=== PATIENT | female | born 1965 | race Caucasian/White ===

== ENCOUNTER → 2018-05-12 10:39 | Outpatient (CLI) | payer MEDICARE, SELFPAY ==
--- NOTE | 2018-05-12 | DI.NM.S_ITS ---
PROCEDURE: NM BONE SCAN WHOLE BODY RADIOPHARMACEUTICAL: 21.4 mCi Tc-99m MDP IV. INDICATIONS: RIGHT BREAST CARCINOMA, reported to have been diagnosed 2 months ago. TECHNIQUE: Delayed whole-body scintigrams were obtained approximately 3-4 hours after intravenous injection of radiotracer. Anterior and posterior views were acquired from vertex to feet. Additional left and right oblique views of the chest and upper abdomen were obtained. COMPARISON: None. FINDINGS: 2 right frontal foci of adjacent abnormal elevated bone scan agent deposition are seen, small in size, and none is seen on the left. What appears to be mild degenerative change along the cervical spine is noted but there is asymmetric increased uptake greater on the right than the left at the manubrium and sternum, and adjacent posterior and anterior ribs show a linear band of discontinuous elevated isotope deposition suspicious for representing osseous metastatic disease. Isotope uptake is asymmetrically prominent at the glenohumeral margin of the left shoulder, and asymmetric right greater than left isotope uptake is present at the acromioclavicular joints. The left shoulder appearances moderately worrisome for representing osseous metastatic disease in that area. Along the thoracic and lumbosacral spine there is mild elevated isotope uptake, in a patchy distribution, with suspected patchy metastatic disease as a likely underlying cause. At the L34 level of the lumbosacral spine there is increased isotope uptake, potentially representing metastatic disease involving the vertebral body of L3. Asymmetric increased isotope uptake is present both at the femoral and acetabular components of the right hip. A lesser degree of left hip isotope uptake is present and this is considered more likely degenerative in origin. IMPRESSION: Overall there is a significant likelihood of multifocal osseous metastatic disease and no comparison imaging of any type is available for review. Presumably additional imaging has been performed. Assuming this is the case the imaging should be obtained and uploaded into the [facility] PACS system to assist in further comparisons in the future. Dictated by: Wilian Herron M.D. on 05/12/2018 at 15:43 Approved by: Wilian Herron M.D. on 05/12/2018 at 15:50
--- NOTE | 2018-05-17 15:46 | ONC.NAV ---
Description: T/C re: appointment times for Initial Consult Activity: Pt had left a message for this [employer] with questions about her insurance and scheduling her first initial consult appointment with one of our providers. Called back and left her a message that her insurance is set and she is ready to be scheduled, that her PCP called this clinic 3-times this morning wanting to get her scheduled, and offered times for 05/21 and 05/28. Pt stated on this commercial underwriter's voicemail that she is hoping to have her lumpectomy this coming , 05/20. Activity: Encouraged pt to call back and schedule the intake time, and/or to ask for any additional assistance that she is needing at this time.
--- NOTE | 2018-06-16 09:06 | ONC.NAV ---
Description: Pt's Pet Scan Results Activity: Called [facility] to find out what is happening with pt's PET/CT results. They state that for some unknown reason, it's showing as being on HOLD, and that the radiologist has not yet dictated his findings. The tech will look into this and expedite the release.
== END ==
PROVIDERS: PCP Family Medicine; Visit Provider Surgery
DX: C50.911 Malignant neoplasm of unspecified site of right female breast (principal)
CPT/HCPCS: 78306; A9503

== ENCOUNTER → 2018-07-14 11:35 | Outpatient (CLI) | payer MEDICARE, MEDICAID, SELFPAY ==
--- NOTE | 2018-07-14 11:38 | DI.MRI.S_ITS ---
PROCEDURE: MR HEAD/BRAIN WO/W CON INDICATIONS: METASTATIC BREAST CANCER TECHNIQUE: Noncontrast axial T1 spin echo, axial T2 fast spin echo, sagittal and axial FLAIR, coronal T2 fast spin echo, axial gradient echo, axial diffusion and ADC through the brain. After the administration of contrast, axial and coronal 3D VIBE or T1 spin echo with fat saturation through the brain. COMPARISON: [facility], [place], [place] BONE SCAN WHOLE BODY, 05/12/2018, 13:39. FINDINGS: Image quality: Excellent. CSF Spaces: Basal cisterns are patent. No extra-axial fluid collections. Ventricles are normal in size and shape. Brain: No midline shift. No intracranial bleeds or masses. No abnormal intracranial enhancement. The brainstem appears normal. Diffusion-weighted images demonstrate no acute ischemic insults. No areas of encephalomalacia. No GRE weighted abnormalities are identified in the brain parenchyma. There are a few, small, punctate foci of increased T2 signal in the periventricular and subcortical white matter tracts compatible with minimal chronic microvascular ischemic change. Normal intravascular flow voids are present. Skull and face: Foci of increased T2 signal, decreased T1 signal in mild postcontrast enhancement noted in the right frontal bone of the calvarium compatible with osseous metastatic lesions. Orbits appear normal. Sinuses: Sinuses and mastoids appear clear. IMPRESSION: 1. No acute intracranial disease process. 2. No abnormal intracranial mass or suspicious intracranial postcontrast enhancement. 3. Minimal, periventricular and subcortical white matter chronic microvascular ischemic change. 3. Enhancing lesions involving the right frontal calvarium compatible with osseous metastatic disease. Dictated by: Imelda Mcleod MD, PhD on 07/14/2018 at 12:31 Approved by: Imelda Mcleod MD, PhD on 07/14/2018 at 12:36
== END ==
PROVIDERS: Visit Provider Internal Medicine Hematology & Oncology
DX: C50.911 Malignant neoplasm of unspecified site of right female breast (principal)
CPT/HCPCS: 70553; A9579

== ENCOUNTER → 2018-07-27 15:06 | Outpatient (CLI) | payer MEDICARE, MEDICAID, SELFPAY ==
[2018-07-27 15:41] LABS: Add Manual Diff / Slide Review NO; Basophils Percent Auto 1.2 % (0-2); Eosinophils Percent Auto 1.1 % (2-4); Hematocrit 37.5 % (36-46); Hemoglobin 12.2 g/dL (12.0-16.0); Lymphocytes Percent Auto 43.4 % (25-40); Mean Corpuscular HGB Conc 32.7 % (30-36); Mean Corpuscular Volume 94.8 fL (80-100); Monocytes Percent Auto 17.4 % (3-14); Neutrophils Absolute Auto 2200 /uL (1500-7000); Neutrophils Percent Auto 36.9 % (50-75); Platelet Count 428 X10^3/uL (150-400); Red Blood Cell Count 3.96 X10^6/uL (4.0-5.2); Red Cell Distribution Width 17.1 % (11.6-14.8); White Blood Cell Count 6.1 X10^3/uL (4.5-11.0)
[2018-07-27 15:53] LABS: Alanine Aminotransferase 40 IU/L (9-52); Albumin 4.4 g/dL (3.5-5.0); Albumin Globulin Ratio 1.4 (1.0-2.8); Alkaline Phosphatase 144 U/L (38-126); Aspartate Aminotransferase 26 IU/L (14-36); BUN Creatinine Ratio 21.4 (6-22); Bilirubin Total 0.2 mg/dL (0.2-1.3); Blood Urea Nitrogen 15 mg/dL (7-17); Calcium 8.7 mg/dL (8.4-10.2); Carbon Dioxide 24 mmol/L (22-32); Chloride 106 mmol/L (98-107); Estimated Glomerular Filt Rate > 60.0 mL/min (>60); Globulin 3.1 g/dL (1.7-4.1); Glucose 88 mg/dL (70-100); HEMOLYSIS < 15 (0-50); Potassium 4.9 mmol/L (3.4-5.1); Sodium 140 mmol/L (137-145); Total Protein 7.5 g/dL (6.3-8.2)
== END ==
PROVIDERS: PCP Family Medicine; Visit Provider Internal Medicine Hematology & Oncology
DX: C50.911 Malignant neoplasm of unspecified site of right female breast (principal)
CPT/HCPCS: 36415; 80053; 85025

== ENCOUNTER → 2018-08-31 11:31 | Outpatient (CLI) | payer MEDICARE, MEDICAID, SELFPAY ==
--- NOTE | 2018-08-31 11:34 | DI.NM.S_ITS ---
PROCEDURE: MD BONE SCAN WHOLE BODY RADIOPHARMACEUTICAL: 21.4 mCi Tc-99m MDP IV. INDICATIONS: Malignant neoplasm of unspecified site of right fe TECHNIQUE: Delayed whole-body scintigrams were obtained approximately 3-4 hours after intravenous injection of radiotracer. COMPARISON: [place], [place], MD PET CT FUSION SKULL 2 THIGH, 06/09/2018, 16:41. [facility], CT, CT CHEST ABD PEL W CON, 08/31/2018, 12:23. [place], [place], MD BONE SCAN WHOLE BODY, 05/12/2018, 13:39. FINDINGS: There are innumerable foci of abnormal uptake in the right frontal bone, sternum, scapulae bilaterally, multiple ribs bilaterally, cervical, thoracic and lumbar spine, sacrum, bony pelvis, proximal humeri bilaterally and proximal femurs bilaterally, consistent with extensive osseous metastases. Compared with the bones in on 05/12/2018, bone lesions are increased in size and number. IMPRESSION: Extensive osseous metastatic disease, increased compared to the last exam. Dictated by: Amado Victor M.D. on 08/31/2018 at 17:13 Approved by: Amado Victor M.D. on 08/31/2018 at 17:17
--- NOTE | 2018-08-31 12:32 | DI.CT.S_ITS ---
PROCEDURE: CT CHEST ABD PEL W CON INDICATIONS: surveillance breast cancer TECHNIQUE: After the administration of oral and intravenous contrast, 5 mm thick sections acquired from the lung apices to the symphysis. 5 mm coronal and sagittal reformats were performed, with additional 7 mm coronal MIP reformats through the lungs. For radiation dose reduction, the following was used: automated exposure control, adjustment of mA and/or kV according to patient size. COMPARISON: [place], [place], [place] PET CT FUSION SKULL 2 THIGH, 06/09/2018, 16:41. [facility], , CT CHEST/ABD/PEL W/CONTRAST, 05/20/2018, 10:20. FINDINGS: Image quality: Excellent. CHEST: Lungs and pleura: No acute airspace opacities. No pleural effusions or pneumothorax. Central and peripheral airways appear patent and normal in caliber. Of note, the previously described pulmonary nodules and the right pleural effusion seen on the PET/CT dated 06/09/18 have resolved. Mediastinum: Heart size is normal. No pericardial effusion. No mediastinal or hilar adenopathy by size criteria. Thoracic aorta and central pulmonary arteries are normal in size. Esophagus is normal in caliber. No hiatal hernia. Chest wall: Multiple cysts are visualized bilaterally within the breasts. No axillary or supraclavicular adenopathy by size criteria. Thyroid gland is unremarkable. ABDOMEN: Solid organs: Liver is normal in size and enhancement. Multiple low-density circumscribed lesions are present throughout the liver unchanged in size when compared with the study dated 05/20/18. Gallbladder is unremarkable. Biliary system is non dilated. Pancreas enhances normally. Spleen is normal in size and enhancement. No adrenal nodules. Kidneys demonstrate normal size and enhancement, without hydronephrosis. Peritoneum and bowel: Bowel loops demonstrate normal wall thickness and caliber. The appendix is thin walled. No free fluid or air. Nodes and vessels: No retroperitoneal or mesenteric adenopathy by size criteria. Aorta and inferior vena cava are normal in size. Miscellaneous: No ventral hernias. PELVIS: Genitourinary: Bladder wall thickness is normal. Miscellaneous: No inguinal hernias or adenopathy. Bones: There are multiple sclerotic lesions throughout the visualized appendicular and axial skeleton. Some of these have a more sclerotic appearance when compared with the prior study. For example, a 2.6 cm lytic lesion at L2 is much less conspicuous on the prior study, measures 2.3 cm in diameter and now has a sclerotic appearance (series 4, image 39). Inferior endplate depression is redemonstrated at L4. There is new right lateral superior endplate depression at L5 in the region of a previously lytic lesion which now has a more sclerotic appearance. Similarly, multiple lytic lesions within the thoracolumbar spine now have a more sclerotic appearance. There are healing left posterior rib fractures noted. IMPRESSION: 1. Increased sclerosis throughout the innumerable lytic lesions when compared with the study dated 05/20/18 suggesting treatment response. 2. No findings to suggest new metastasis. Previously seen pulmonary nodules on the PET/CT dated 06/09/18 are no longer visualized. Dictated by: Milagros Reeves M.D. on 08/31/2018 at 14:18 Approved by: Milagros Reeves M.D. on 08/31/2018 at 14:46
== END ==
PROVIDERS: PCP Family Medicine; Visit Provider Internal Medicine Hematology & Oncology
DX: C50.911 Malignant neoplasm of unspecified site of right female breast (principal); C79.51 Secondary malignant neoplasm of bone
CPT/HCPCS: 71260; 74177; 78306; A9503; Q9967

== ENCOUNTER → 2018-09-16 10:00 | Oncology outpatient (ONC) | payer MEDICARE, MEDICAID, SELFPAY ==
[2018-05-24 09:47] VITALS: BP 138/84; PULSE 81; RESP 18; TEMP 36.3; O2SAT 98
--- NOTE | 2018-05-24 10:28 | P.CONONC_ITS ---
History of Present Illness - Data of Consult Patient: new to practice Consult date: 05/24/18 Requesting Physician: Gina Ji ARNP Primary Care Provider: Alyx Wells MD - Consult Narrative Reason for consult: metatastic breast cancer Narrative: Domi Black is a 52 year old female. Patient has a decade long history of bilateral breast cysts requiring multiple drainage. In January or February of 2018, patient noticed stinging sensation in the right breast. She did not pay much attention and thought it might be due to the same cysts like before. But thereafter patient herself felt a hard lump and she realized that it was different. On March 17, 2018 patient was evaluated by Dr. Alyx Wells at [facility]. Dr. Wells palpated a 5 x 3 cm mass in the right breast. Therefore a mammogram was performed on March 23, 2018. The mammogram showed BI-RADS 5 highly suspicious for malignancy. There is an ill- defined density with distortion present in the lower outer portion of the posterior right breast. The appearance was suspicious for malignancy. There was at least 1 lymph node with cortical thickening in the right axilla. US study showed an ill-defined hypoechoic region with dense acoustic shadowing percent at 8:00 a.m., 8 cm from the nipple. Assessment of the inferior right axilla demonstrated an 8 mm node with loss of the fatty hilum. On March 24, 2018 patient underwent ultrasound-guided core biopsy of the right breast lesion. The pathology showed invasive ductal carcinoma, moderately differentiated, 2 of 2 cores involved, 1.9 cm in greatest length of carcinoma, no lymphovascular invasion, no ductal carcinoma in-situ, ER positive (3+, 70% of cells), ID positive (2 to 3+, 30% of cells), Ki 67 intermediate (10% of cells) and HER2 negative (0+, 0% of cells). Biopsy of the right axillary lymph node showed fibrofatty, fibrovascular, and focal lymph node material and negative for metastatic carcinoma. On April 07, 2018 patient underwent bilateral breast MRI. The breast MRI showed the 4.5 cm enhancing nodule with malignant kinetics in the lower outer right breast with lobulated margin and without definite adjacent satellite lesions. Lymph nodes with loss of fatty hilar intern architect in the low right axilla.This lymph node contains a signal void suggesting clip placement. On 04/11/2018, she was evaluated by Dr. Walsh of [facility]. On May 12, 2018 patient underwent bone scan. The bone scan showed significant likelihood of multifocal osseous metastatic disease. On May 20, 2018, she underwent CT scan of the chest abdomen pelvis. The CT scan showed widespread diffuse metastatic breast cancer throughout the chest and skeleton, large 3-4 cm primary right breast cancer with axillary metastatic lymphadenopathy, innumerable small subcentimeter metastatic pulmonary nodules with lymphangitic carcinomatosis and small bilateral malignant pleural effusions, small metastatic mediastinal lymph nodes within the chest, extensive widespread osteolytic metastatic disease throughout all the visualized bones with mild endplate pathologic compression fractures at T8, L4, and S1. After the right breast biopsy, patient has been complaining of tenderness, swelling, redness and pain of the right breast. Patient has been followed by Dr. Alyx Wells and also by Dr. Walsh. It was suspected it might be mastitis without abscess formation. Patient was treated with Keflex as well as Bactrim. Patient's father at the [facility] in [place]. Therefore patient requested that she be referred to [facility] for continued care. She came in here today accompanied by her . Patient is using a walker. She said for the past 1-2 months because of the whole body pain she had to use the walker to help her move around. Patient said physically she is disabled at home. And she is home bound. She reported decreased energy level. Her weight also has decreased during this period of time. Patient reported pain in the cervical area, in the upper and lower back as well as the whole legs. She said the pain simply spirals down. She is now taking hydrocodone as well as diclofenac for the pain control. Upon further questioning, patient said that she has been having back pain for the past several years. She also had a history of deep venous thrombosis of the lower legs and she attributed the leg pain to the previous history of DVT. Patient denies any tingling or numbing of the feet. She denies any nausea or vomiting. No chest pain. No abdominal pain. No diarrhea and no constipation. Patient has severe migraine headache. Patient reports pain?: Yes Home Medications and Allergies Home Medications Medication Instructions Recorded Confirmed Type diclofenac potassium 50 mg PO DAILY PRN 05/24/18 05/24/18 History goserelin 3.6 mg SUBCUT Q28D #10 ea 11/05/18 Rx hydrocodone-acetaminophen 1 tab PO Q4H PRN 05/24/18 05/24/18 History letrozole [Femara] 2.5 mg PO DAILY #90 tab 05/24/18 Rx palbociclib [Ibrance] 125 mg PO DAILY #21 cap 05/24/18 Rx Allergies Allergy/AdvReac Type Severity Reaction Status Date / Time clindamycin Allergy Unknown Verified 05/24/18 09:54 levofloxacin [From Levaquin] Allergy Verified 05/24/18 09:53 Penicillins Allergy Verified 05/24/18 09:54 Medical History - Medical, Surgical, Family History Medical History: Medical History (Last Reviewed 05/24/18 @ 12:46 by Maty Ceballos MD) Anxiety Bilateral breast cysts DVT (deep venous thrombosis) Depression Surgical History: Surgical History (Last Updated 05/24/18 @ 12:47 by Maty Ceballos MD) H/O dilation and curettage Family History: Family History (Last Updated 05/24/18 @ 12:49 by Maty Ceballos MD) Mother Cyst, breast Father Cancer of kidney - Social History Smoking Status: Former smoker Substance Use Type: does not use, former substance user Alcohol Intake: former Review of Systems - Patient Self-Reported Symptoms SR Constitution: Weight loss/gain (about 10 lbs over one week or two weeks. ), Fatigue/Malaise SR eye issues: Vision changes SR ears, nose, mouth, throat issues: Congestion, Cough, Hoarseness SR respiratory issues: Cough, Shortness of breath SR Cardiovascular issues: Palpitations, Chest pain, discomfort, tightness, Shortness of breath with activity or lying flat, Dizzy/lightheaded SR Skin issues: Dry skin, Skin rash or itching, Hair loss or scalp prob SR Gastrointestinal issues: Nausea SR Genitourinary issues: Frequent urination, Change in stream, Incontinence, Vaginal bleeding SR Musculoskeletal issues: Joint pain or swelling, Muscle weakness, Muscle pain or cramps, Back or neck pain, Cold hands or feet, Difficulty walking, Bone pain SR Neuro issues: Headache, Lightheaded/dizzy SR Hematologic issues: Swollen lymph nodes All systems PM: reviewed and no additional remarkable complaints except as stated Exam Vital signs: 3 Temp 97.3 F L 05/24/18 09:47 Pulse 81 05/24/18 09:47 Resp 18 05/24/18 09:47 BP 138/84 05/24/18 09:47 Pulse Ox 98 05/24/18 09:47 ECOG 1 Narrative: Constitutional: well developed, obese, NAD, well groomed, cooperative, anxious HEENT: Normocephalic atraumatic. Extraocular muscle movement intact. Pupils are round, equal and reactive to light and accommodations. Anicteric sclera. No hearing difficulty; Oral mucus membrane moist and without ulcers. Neck: Supple, symmetrical, and tracheal midline; No palpable thyromegaly and no palpable lymph nodes. There is a hard 1 cm mass underneath the skin on the back of the neck. Respiratory: No use of accessory muscles. Clear to auscultation, and no wheezes or rales or rubs. Cardiovascular: Regular rate and rhythm, S1 and S2 normal, no murmurs gallops or rubs. No JVD. No pitting edema of lower extremities. Abdomen: Soft, nontender, non-distended, bowel sounds normal, no palpable organomegaly, no hernia, no palpable masses. Lower extremities: No palpable pedal edema. Lymphatic: no palpable lymph nodes in the neck, axillae, or groins. Skin: no rashes, no ulcers, no petechiae Neurological: Awake and alert and oriented x3. CN II-XII grossly intact. No focal motor or sensory deficit. Psychiatric: Good judgment, good insight, normal affect, normal thought process , cooperative, no depression, no anxiety. Breast exams: The left breast is without nipple retraction, no palpable nodules or masses, and no palpable lymph nodes in the left axilla. The right breast showed peau d'orange skin changes with mild erythema around the nipple with radius of about 8 cm. The irregularly shaped heart mass palpable at 8-11 o 'clock with mild tenderness. I did not appreciate any enlarged lymph nodes in the right axilla. Results - Labs Her most recent laboratory tests were from May 20, 2018 the sodium 135 potassium 4.4, chloride 100, calcium 10.0, total protein 6.8, albumin 4.0, globulin 2.8, total bilirubin 0.3, alk phos 111, AST 27, ALT 29 CEA 3.9 - Imaging CT scan - abdomen: report reviewed, image reviewed CT scan - chest: report reviewed, image reviewed CT scan - pelvis: report reviewed, image reviewed Assessment and Plan (1) Primary cancer of right breast with metastasis to other site Today I took time discussing with the patient and patient's about metastatic breast cancer. I reviewed the mammogram report, the biopsy report, the CT scan, the MRI, and the bone scan results. Patient has already been informed of the pathology report. I reiterated that the biopsy showed a invasive ductal carcinoma and was ER positive, ID positive, and HER2 negative. Her breast cancer is large in size, located on the outer side of the right breast. Despite biopsy of one lymph node in the right axilla was negative for malignancy, the imaging studies including MRI and CT scan suggest patient has likely positive right axillary lymph node involvement. The CT scan showed multiple pulmonary small nodules highly suspicious for metastasis as well as multiple levels of diffuse osteolytic lesions. In addition the bone scan also is highly suspicious for metastatic disease. I talked with the patient given the above information, she has a stage IV breast cancer. Patient previously was aware of the pathology report, but she is not aware of the imaging studies. She is somewhat upset and anxious. I talked with her that for stage IV metastatic breast cancer, it is considered incurable. Given the hormone receptor positive features, the standard recommendation is endocrine therapy together with CDK4/6 inhibitors. I talked with the patient that most likely she will respond to the treatment. However it will take months before we see significant shrinkage of the primary as well as the metastatic disease. Hopefully all the disease will stabilize after we start the treatment. I talked with the patient that for endocrine treatment, for pre-menopausal woman we use tamoxifen. For postmenopausal woman we use Arimidex inhibitors. She said she is probably radha-menopausal. I explained to her that I will try to give her goserelin to suppress the ovarian function and initiate treatment with letrozole. I explained to the patient that given her current rapid growth of the cancer, I prefer to use ovarian suppression together with aromatase inhibitor. Patient voiced understanding. I also talked with her about possible side effects including hot flashes etc. Patient voiced understanding. Next I talked about the use of CDK4 6 inhibitors. I described to her that it is a new standard of care for combination treatment. I explained to the patient that palbociclib is a well-tolerated oral medications. The main concern is the neutropenia. However fever neutropenia is not come. During the treatment will monitor her blood counts regularly. I also talked with her about the use of Xgeva due to her bone metastasis. I explained to her that it can decrease the risk fractures. However I would like her to see her dentist for clearance of the use of Xgeva. I indicated that Xgeva occasionally can cause osteonecrosis of the jaw. Plan: 1. PET/CT to evaluate the extent of metastasis and possible biopsy of metastatic lesion. 2. Palbciclib 125 mg daily on days 1-21 every 28 days 3. Letrazole 2.5 mg daily 4. Goserolin 3.6 mg monthly, one injection today 5. Dental clearance for Xgeva 6. RTC in 2 weeks, CBC, CMP (2) Pain of multiple sites The patient has extensive whole body pain affecting the cervical, upper chest back and lower back as well as the lower extremities. Patient currently is being followed by Dr. Wells for the pain control. Plan: She is now being followed at Dr. Wells's office. And patient prefers to continue pain care there.
[2018-05-24] MEDS: GOSERELIN 3.6 MG SUBCUT (11:59)
--- NOTE | 2018-05-24 12:00 | ONC.SCHED ---
DENOSUMAB [id number] / GOSERELIN [id number] [facility] [place]
--- NOTE | 2018-05-27 16:28 | PM.CHEMOCOU ---
Chemotherapy Counseling - History of present illness History of present illness: Domi is a 52-year-old female with recently confirmed metastatic ER positive, IA positive, Ki67 intermediate, HER2 negative breast cancer. She has significant osseous disease with known compression fractures at present. She presents today for chemotherapy counseling with her [id number] and her . - General New Chemotherapy Patient: Yes Treatment Plan Reviewed: yes - Chemotherapy Counseling Chemotherapy Counseling: Chemotherapy Education: Domi Bart Black provided written information on all topics discussed. Written materials printed from www.[facility] and www.[facility].org. Domi was given an overview of cancer and mechanism of action of cancer cells, that cancer is caused by cells that are dividing rapidly, and out of control. Traditional chemotherapy works by targeting the fast dividing cells and killing them. Chemotherapy affecting healthy cells dividing quickly causes many of the side effects (hair follicles, bone marrow, mucus membranes). Overview of blood cell functions of white cells to fight infection, red cells to carry oxygen, and platelets to stop bleeding was discussed, and that when bone marrow is affected by chemo, there is a decrease in production of these cells. Home care of the patient following chemotherapy was discussed. Body fluids will be contaminated for 48 hours following treatment, and any body fluids handled by caregivers should be handled wearing gloves, surfaces need to be cleaned with soap and water, any soiled linens or clothing need to be washed separately in hot water, toilet lid should be closed when flushing, person cleaning the toilet should wear gloves. How chemotherapy is administered by the RN?s in the clinic, that orders are double checked by pharmacy and checked again by two RN?s prior to administration. Nurses wear protective gear to prevent exposure to them of the chemotherapy agents which can also cause cancer. Cancer center information discussed and written hand out provided listing on-call oncologist available weekends and after hours triage R.N. hours and infusion room guide. New patient binder given to Domi, which includes clinic names, phone numbers, clinic information, calendar, cancer glossary, and list of resources. Handout on advanced directives Common side effects of chemotherapy were discussed with self care tips for prevention of complications. Information also provided in writing. These included: Low blood counts (anemia, thrombocytopenia, neutropenia) Hair loss (alopecia) Nausea and vomiting Decreased appetite Loss of fertility Diarrhea Mouth sores Constipation Peripheral neuropathy Chemo brain/cognitive changes Fatigue Instructions on when to call your healthcare team or on-call physician immediately: Fever of 100.4 or higher, chills, any signs of infection Shortness of breath, wheezing, difficulty breathing, closing of throat, swelling of face, hives (signs of possible allergic reaction) Chest pain, fast heart beat or feelings of a different heart rhythm Swelling of an extremity with or without pain signs of stroke Instructions on when to call your healthcare team within the next 24 hours Nausea that interferes with ability to eat and unrelieved with prescribed medication Diarrhea (4-6 episodes in 24 hour period). Unusual bleeding or bruising Black or tarry stools, or blood in your stools Blood in the urine pain or burning with urination Extreme fatigue (unable to perform self-care activities) Mouth sores or sore areas in your mouth Bad headache Dizziness or lightheadedness Large weight gain over a short period of time General self-care tips while undergoing treatment discussed were as follows. Written materials were provided covering in detail and additional self care tips. Drink at least 2-3 quarts (8-10 glasses) of no-caffeinated beverages daily unless you are instructed otherwise and empty your bladder frequently Report any concerning symptoms to your healthcare team Avoid crowds and sick people, wash your hands frequently Use a soft bristled toothbrush, rinse three times a day with 1 tsp baking soda or 1 tsp salt mixed with warm water Avoid any mouthwashes or oral and skin products containing alcohol or fragrances Use electric razors to avoid cutting yourself Avoid contact sports or activities that could cause head injury or bleeding Avoid sun exposure, wear SPF 15 or higher, wear protective clothing Get plenty of rest, meter your activities Maintain good nutrition Avoid alcoholic beverages Attend your scheduled appointments and lab draws Treatment regimen reviewed and medications were discussed with attention to specific side effects and self care for the pt?s treatment regimen which includes [ibrance, letrozole, groserlin, zometa]. Domi was provided with literature regarding [each of these medications] and common side effects. Additionally, Domi was provided with literature regarding the diagnosis of [metastatic breast cancer]. Domi instructed to read literature at home. Keep a list of questions which we are happy to go over at future visits. For any urgent questions please feel free to call any time. - Response to Teaching Response to Teaching: Verbalizes Understanding - Referrals Referrals: [facility] (working on insurance, still needs to apply for medicaid)
--- NOTE | 2018-05-27 16:31 | P.CHEMO_ITS ---
Chemotherapy Counseling - History of present illness History of present illness: Domi is a 52-year-old female with recently confirmed metastatic ER positive, MN positive, Ki67 intermediate, HER2 negative breast cancer. She has significant osseous disease with known compression fractures at present. She presents today for chemotherapy counseling with her [id number] and her . - General New Chemotherapy Patient: Yes Treatment Plan Reviewed: yes - Chemotherapy Counseling Chemotherapy Counseling: Chemotherapy Education: Domi Bart Black provided written information on all topics discussed. Written materials printed from www.[employer].[employer] and www.[employer].org. Domi was given an overview of cancer and mechanism of action of cancer cells, that cancer is caused by cells that are dividing rapidly, and out of control. Traditional chemotherapy works by targeting the fast dividing cells and killing them. Chemotherapy affecting healthy cells dividing quickly causes many of the side effects (hair follicles, bone marrow, mucus membranes). Overview of blood cell functions of white cells to fight infection, red cells to carry oxygen, and platelets to stop bleeding was discussed, and that when bone marrow is affected by chemo, there is a decrease in production of these cells. Home care of the patient following chemotherapy was discussed. Body fluids will be contaminated for 48 hours following treatment, and any body fluids handled by caregivers should be handled wearing gloves, surfaces need to be cleaned with soap and water, any soiled linens or clothing need to be washed separately in hot water, toilet lid should be closed when flushing, person cleaning the toilet should wear gloves. How chemotherapy is administered by the RN?s in the clinic, that orders are double checked by pharmacy and checked again by two RN?s prior to administration. Nurses wear protective gear to prevent exposure to them of the chemotherapy agents which can also cause cancer. Cancer center information discussed and written hand out provided listing on- call oncologist available weekends and after hours triage R.N. hours and infusion room guide. New patient binder given to Domi, which includes clinic names, phone numbers, clinic information, calendar, cancer glossary, and list of resources. Handout on advanced directives Common side effects of chemotherapy were discussed with self care tips for prevention of complications. Information also provided in writing. These included: Low blood counts (anemia, thrombocytopenia, neutropenia) Hair loss (alopecia) Nausea and vomiting Decreased appetite Loss of fertility Diarrhea Mouth sores Constipation Peripheral neuropathy Chemo brain/cognitive changes Fatigue Instructions on when to call your healthcare team or on-call physician immediately: Fever of 100.4 or higher, chills, any signs of infection Shortness of breath, wheezing, difficulty breathing, closing of throat, swelling of face, hives (signs of possible allergic reaction) Chest pain, fast heart beat or feelings of a different heart rhythm Swelling of an extremity with or without pain signs of stroke Instructions on when to call your healthcare team within the next 24 hours Nausea that interferes with ability to eat and unrelieved with prescribed medication Diarrhea (4-6 episodes in 24 hour period). Unusual bleeding or bruising Black or tarry stools, or blood in your stools Blood in the urine pain or burning with urination Extreme fatigue (unable to perform self-care activities) Mouth sores or sore areas in your mouth Bad headache Dizziness or lightheadedness Large weight gain over a short period of time General self-care tips while undergoing treatment discussed were as follows. Written materials were provided covering in detail and additional self care tips. Drink at least 2-3 quarts (8-10 glasses) of no-caffeinated beverages daily unless you are instructed otherwise and empty your bladder frequently Report any concerning symptoms to your healthcare team Avoid crowds and sick people, wash your hands frequently Use a soft bristled toothbrush, rinse three times a day with 1 tsp baking soda or 1 tsp salt mixed with warm water Avoid any mouthwashes or oral and skin products containing alcohol or fragrances Use electric razors to avoid cutting yourself Avoid contact sports or activities that could cause head injury or bleeding Avoid sun exposure, wear SPF 15 or higher, wear protective clothing Get plenty of rest, meter your activities Maintain good nutrition Avoid alcoholic beverages Attend your scheduled appointments and lab draws Treatment regimen reviewed and medications were discussed with attention to specific side effects and self care for the pt?s treatment regimen which includes [ibrance, letrozole, groserlin, zometa]. Domi was provided with literature regarding [each of these medications] and common side effects. Additionally, Domi was provided with literature regarding the diagnosis of [ metastatic breast cancer]. Domi instructed to read literature at home. Keep a list of questions which we are happy to go over at future visits. For any urgent questions please feel free to call any time. - Response to Teaching Response to Teaching: Verbalizes Understanding - Referrals Referrals: Property Field Adjuster (working on insurance, still needs to apply for medicaid)
--- NOTE | 2018-06-01 09:49 | ONC.NAV ---
Description: T/C re: PET/CT Activity: Left pt's SO, Atul, a message that they PET/CT company has been trying to get a hold of Domi to schedule her imaging, and her voicemail is full/not accepting messages. Requested that she address her email/call PET company back to schedule.
--- NOTE | 2018-06-01 13:41 | ONC.NAV ---
Description: E-mail communication (secure) Activity: Emailed pt's SOAtul, requesting an update about her Medicaid application process, and if they have completed her application. Requested a return response.
--- NOTE | 2018-06-02 10:38 | PC.NURSE ---
Spoke with pt regarding needing pain management. She reports new pain in L rib in addition to spine fx due to mets. I explained neither Dr Ceballos nor Ellyn were in to address this issue and if her pain was becoming unmanageable she could be seen in the ED. I also explained I would be happy to address this with Dr. Ceballos but it would not be until tomorrow 06/03. She was fine with this, so a note will be sent to him for additional pain coverage. Her next appt is set for 06/07 so further review can be done at that time.
[2018-06-07 13:32] VITALS: BP 132/87; PULSE 91; RESP 18; TEMP 36.6; O2SAT 97
--- NOTE | 2018-06-07 13:41 | P.PNONC_ITS ---
PN -Subjective Interval history: Patient presents here today for scheduled follow-up visit. Patient is completing OF lots of back pain. She is using a walker and with waist belt. Patient said that the pain is so severe that she was not able to walk by herself. She is taking pain medications including morphine and hydrocodone. She is now being followed by Dr. Wells for narcotics prescriptions. She has scheduled follow-up visit with Dr. Wells tomorrow. Clinically patient expresses a lot of concerns and worries. She is accompanied by her to the clinic. She is talking throughout the clinical encounter. Her rarely talks. She said she is worried about the vertebra might collapse any time. She is afraid of walking or lifting. She also said that she cannot understand why the biopsy of the lymph node was negative while the MRI showed possibly positive findings. She is also asking why in the beginning Dr. England recommended surgery, but in the end did not do the surgery. But she said she understand that she is passing the point where the surgery is possible. She started taking letrozole on 06/01/2018. Patient overall tolerated actually pretty well. But she said she had some weird sensation in the ovaries. She also complaining of new onset of vaginal bleeding. She said it is different from menstrual periods. She said is pinkish and light. She has had bleeding before the diagnosis of breast cancer. She was asked to do vaginal ultrasound, but she kept delaying and has not done this yet. - Patient Self-Reported Symptoms SR Constitution: Fatigue/Malaise SR eye issues: Vision changes SR ears, nose, mouth, throat issues: Hoarseness SR respiratory issues: Coughing blood SR Cardiovascular issues: Palpitations, Chest pain, discomfort, tightness, Shortness of breath with activity or lying flat, Dizzy/lightheaded SR Skin issues: Dry skin, Hair loss or scalp prob SR Gastrointestinal issues: Change in bowel pattern, Constipation, Abdominal pain, Heartburn SR Genitourinary issues: Frequent urination, Change in stream, Incontinence, Vaginal bleeding SR Musculoskeletal issues: Muscle weakness, Muscle pain or cramps, Back or neck pain, Cold hands or feet, Difficulty walking, Bone pain SR Neuro issues: Headache, Lightheaded/dizzy, Numbness or tingling, Difficulty balancing SR Hematologic issues: Swollen lymph nodes - Additional ROS All systems PM: reviewed and no additional remarkable complaints except as stated Home Medications and Allergies Home Medications Medication Instructions Recorded Confirmed Type diclofenac potassium 50 mg PO DAILY PRN 05/24/18 05/24/18 History goserelin 3.6 mg SUBCUT Q28D #10 ea 05/24/18 Rx hydrocodone-acetaminophen 1 tab PO Q4H PRN 05/24/18 05/24/18 History letrozole [Femara] 2.5 mg PO DAILY #90 tab 05/24/18 Rx palbociclib [Ibrance] 125 mg PO DAILY #21 cap 05/24/18 Rx lorazepam 1 mg PO BID-TID PRN 06/01/18 06/01/18 History ondansetron 8 mg PO Q6HR PRN 06/01/18 06/01/18 History amitriptyline 25 mg PO DAILY 06/07/18 06/07/18 History mirtazapine 06/07/18 History palbociclib [Ibrance] 125 mg PO DAILY #21 cap 06/07/18 Rx Allergies Allergy/AdvReac Type Severity Reaction Status Date / Time clindamycin Allergy Unknown Verified 05/24/18 09:54 levofloxacin [From Levaquin] Allergy Verified 05/24/18 09:53 Penicillins Allergy Verified 05/24/18 09:54 Exam Vital signs: Last Vital Signs Temp 97.9 F 06/07/18 13:32 Pulse 91 H 06/07/18 13:32 Resp 18 06/07/18 13:32 BP 132/87 06/07/18 13:32 Pulse Ox 97 06/07/18 13:32 ECOG 1 Narrative: Constitutional: well developed, obese, NAD, well groomed, cooperative, anxious HEENT: Normocephalic atraumatic. Extraocular muscle movement intact. Pupils are round, equal and reactive to light and accommodations. Anicteric sclera. No hearing difficulty; Oral mucus membrane moist and without ulcers. Neck: Supple, symmetrical, and tracheal midline; No palpable thyromegaly and no palpable lymph nodes. There is a hard 1 cm mass underneath the skin on the back of the neck. Respiratory: No use of accessory muscles. Clear to auscultation, and no wheezes or rales or rubs. Cardiovascular: Regular rate and rhythm, S1 and S2 normal, no murmurs gallops or rubs. No JVD. No pitting edema of lower extremities. Abdomen: Soft, nontender, non-distended, bowel sounds normal, no palpable organomegaly, no hernia, no palpable masses. Lower extremities: No palpable pedal edema. Lymphatic: no palpable lymph nodes in the neck, axillae, or groins. Skin: no rashes, no ulcers, no petechiae Neurological: Awake and alert and oriented x3. CN II-XII grossly intact. No focal motor or sensory deficit. Psychiatric: Good judgment, good insight, normal affect, normal thought process , cooperative, no depression, no anxiety. Breast exams: Deferred. Results - Labs Reviewed. Assessment and Plan (1) Primary cancer of right breast with metastasis to other site Assessment: Today once again I talked with the patient about the diagnosis of metastatic hormone receptor positive HER2 negative breast cancer. Patient has a right- sided breast cancer with evidence of right axilla lymph node involvement by MRI scanning, bilateral non metastasis and multiple level is of vertebral involvement. However this bone scan is not definitive as far as the abnormal uptake is concerned. Reviewed the images of the MRI, the CT scan, and the bone scan myself. In my opinion there is some consistency between the CT scan as well as the bone scan. I think that the a PET-CT will be of some value in further evaluate the involvement of the vertebra In addition talked with her about the most important aspect of treating hormone receptor positive breast cancer. I talked with her that the backbone is the endocrine therapy. Given uncertainty about her menopausal status, I started the patient also on treatment with goserelin. I talked with the patient this is the most important. As far as the CDK4/6 inhibitor is concerned, patient mistook the treatment for immunotherapy. I talked with her that it is not an immunotherapy. The palbociclib will not work by itself. It has to be in the context of endocrine therapy. It has a benefit of progression-free survival with hazard ratio of about 50%. In another words, it reduces the risk of progression by about 50%. Next I talked with her about the Xgeva. I talked with her that Xgeva can help strengthen the bone and decrease the occurrence of skeletal related events, for example, fracture. Both medications are new and are financially expensive. Our clinical social work therapist Vi has already initiated the application for financial assistance. For the pain control, patient will follow-up with Dr. Wells for further discussion tomorrow. Plan: 1. PET/CT as scheduled 2. Continue Letrazole 2.5 mg daily 3. Palbciclib 125 mg daily on days 1-21 every 28 days once approved 4. Goserolin 3.6 mg monthly, next dose: 06/23/2018 5. RTC in 2 weeks, CBC, CMP (2) Pain of multiple sites Assessment: The patient has extensive whole body pain affecting the cervical, upper chest back and lower back as well as the lower extremities. Patient currently is being followed by Dr. Wells for the pain control. Plan: She is now being followed at Dr. Wells's office. And patient prefers to continue pain care there.
--- NOTE | 2018-06-09 10:43 | ONC.NAV ---
Description: Financial Assistance-Ibrance Activity: Faxed [employer] Patient Assistance forms for pt's Ibrance. Will f/u with pt once a determination has been made.
--- NOTE | 2018-06-09 14:28 | PC.NURSE ---
Pt states she needs to get a vaginal ultrasound for some abnormal vaginal bleeding that she's concerned about. She states that her MANUSCRIPTS ARCHIVIST Dr Wells sent order over to [facility] but she prefers to get it here at [facility]. Spoke to Dr Wells's office. They are faxing the order to us. Spoke with Fabiana in diagnostic imaging and she said they can put in the order. Notified pt that [facility] now has the order. She can call and schedule per Fabiana's recommendation.
--- NOTE | 2018-06-14 13:54 | ONC.NAV ---
Description: T/C re: treatment questions Activity: Pt called stating that she was confused about the treatment plan for herself. She reqested for Dr. Ceballos to please call her back today-METAL BUGGY OPERATOR agreed to relay her request. She continues to state that she is confused about who is doing pain management for her. She did say that she signed a letter from her PCP Dr. Wells, in which Dr. Wells is deferring all pain management to Dr. Ceballos. Pt is planning to see Dr. Wells today, yet she continued to insist that she was in limbo with pain management. METAL BUGGY OPERATOR offered her support, however also reiterated that she has been getting all her pain management from Dr. Wells until now already, and that this letter clearly does not take effect to transition pain management to Dr. Ceballos until pt's next appt. with him on 06/21. Requested that if her PCP does make changes today to her pain meds, to please have them fax or call us with the changes. No additional needs indicated at this time.
[2018-06-18 14:31] LABS: Add Manual Diff / Slide Review NO; Basophils Percent Auto 0.9 % (0-2); Eosinophils Percent Auto 4.4 % (2-4); Hematocrit 37.1 % (36-46); Hemoglobin 12.7 g/dL (12.0-16.0); Lymphocytes Percent Auto 29.2 % (25-40); Mean Corpuscular HGB Conc 34.3 % (30-36); Mean Corpuscular Hemoglobin 30.9 PG (26-34); Mean Corpuscular Volume 90.2 fL (80-100); Monocytes Percent Auto 9.1 % (3-14); Neutrophils Absolute Auto 4000 /uL (3000-5900); Neutrophils Percent Auto 56.4 % (50-75); Platelet Count 367 X10^3/uL (150-400); Red Blood Cell Count 4.11 X10^6/uL (4.0-5.2); Red Cell Distribution Width 14.1 % (11.6-14.8)
[2018-06-18 14:38] LABS: Alanine Aminotransferase 37 IU/L (9-52); Albumin 4.3 g/dL (3.5-5.0); Albumin Globulin Ratio 1.3 (1.0-2.8); Alkaline Phosphatase 301 U/L (38-126); Aspartate Aminotransferase 27 IU/L (14-36); Bilirubin Total 0.2 mg/dL (0.2-1.3); Blood Urea Nitrogen 14 mg/dL (7-17); Calcium 9.3 mg/dL (8.4-10.2); Carbon Dioxide 27 mmol/L (22-32); Chloride 104 mmol/L (98-107); Estimated Glomerular Filt Rate > 60.0 mL/min (>60); Globulin 3.2 g/dL (1.7-4.1); Glucose 98 mg/dL (70-100); HEMOLYSIS < 15 (0-50); Potassium 4.6 mmol/L (3.4-5.1); Sodium 141 mmol/L (137-145); Total Protein 7.5 g/dL (6.3-8.2)
--- NOTE | 2018-06-21 13:39 | ONC.NAV ---
Description: Financial Assistance/Ibrance coordination Activity: Several calls made to confirm that pt's Part D/[place] had approved our appeal for coverage of the Ibrance. Called [employer] and confirmed that the award for her co-pay assistance is effective through early 2018, meaning that [employer] is giving her free medication right now, but as soon as there is a foundation with open funds for metastatic breast cancer [facility], that they will have her apply for that funding. They will also be in touch with pt when that needs to happen. Pt has also already been sent her first delivery from [employer]. No additional action is needed on our part at this time. Updated Dr. Ceballos, who will be seeing pt later today.
--- NOTE | 2018-06-21 15:10 | ONC.PN ---
PN -Subjective Interval history: This is a 52-year-old female with newly diagnosed ER positive MS positive HER2 negative metastatic right breast cancer with involvement of bilateral lungs, bilateral pleural effusion, widespread osseus metastasis, mediastinum lymph nodes involvement. Patient currently is taking goserelin, and letrozole. She presents here today for goserelin injection. Patient overall has tolerated the letrozole and goserelin fairly well. Patient has some vaginal bleeding and is now being followed by her product expert. Patient recently underwent pelvic ultrasound with endovaginal examination and it showed diffusely heterogeneous uterus with several suspected poorly diff initiated fibroids and diffuse non-discrete myomatous change and adenomyosis; ovaries are not visualized, and the endometrium is not well delineated. Patient is complaining of back pain and she is very much worried about that the cancer may have already invaded her brain or the cancer is trying to invade down the femurs bilaterally. Patient denies any headache. However she does report some blurred vision and double vision. She is very much concerned. She does not have any chest pain or abdominal pain. Recently she was seen by her primary care provider Dr. Wells. I received a letter from Dr. Wells wishing to transfer cancer pain management to our clinic. The patient currently is taking MS Contin 30 mg every 12 hr and hydrocodone 5/325, 1#-3# tablets per day for breakthrough pain in addition to use the diclofenac. Interestingly patient said that diclofenac has been very effective in controlling her back pain. I also received a letter from Dr. Kim Branham DDS stating that at this time, there are no dental needs that would cause concern with her planned medications. Domi has clearance to take bisphosphonate class medications. On 06/09/2018, patient underwent PET scan. The PET scan showed a 2.7 x 3.2 cm mass in the right breast consistent with the biopsy-proven primary neoplasm, widespread osseus metastasis with innumerable lytic bone lesions with increased FDG uptake, small pulmonary nodules with low FDG uptake, small mediastinal and right axillary lymph nodes with low level FDG activity, small right effusion and trace left pleural effusion, a focal uptake in the right subscapular muscle at enlarged myomatous uterus. - Patient Self-Reported Symptoms SR Constitution: Fatigue/Malaise SR eye issues: Vision changes SR ears, nose, mouth, throat issues: Hoarseness SR respiratory issues: Coughing blood SR Cardiovascular issues: Palpitations, Chest pain, discomfort, tightness, Shortness of breath with activity or lying flat, Dizzy/lightheaded SR Skin issues: Dry skin, Hair loss or scalp prob SR Gastrointestinal issues: Change in bowel pattern, Constipation, Abdominal pain, Heartburn SR Genitourinary issues: Frequent urination, Change in stream, Incontinence, Vaginal bleeding SR Musculoskeletal issues: Muscle weakness, Muscle pain or cramps, Back or neck pain, Cold hands or feet, Difficulty walking, Bone pain SR Neuro issues: Headache, Lightheaded/dizzy, Numbness or tingling, Difficulty balancing SR Hematologic issues: Swollen lymph nodes SR Endocrine issues: Excessive thirst, Hot flashes Home Medications and Allergies Home Medications Medication Instructions Recorded Confirmed Type diclofenac potassium 50 mg PO DAILY PRN 05/24/18 05/24/18 History goserelin 3.6 mg SUBCUT Q28D #10 ea 05/24/18 Rx letrozole [Femara] 2.5 mg PO DAILY #90 tab 05/24/18 Rx palbociclib [Ibrance] 125 mg PO DAILY #21 cap 05/24/18 Rx lorazepam 1 mg PO BID-TID PRN 06/01/18 06/01/18 History amitriptyline 25 mg PO DAILY 06/07/18 06/07/18 History mirtazapine 06/07/18 History palbociclib [Ibrance] 125 mg PO DAILY #21 cap 06/07/18 06/21/18 Rx ondansetron 8 mg PO Q6HR PRN #30 tab 06/15/18 Rx hydrocodone-acetaminophen 1 tab PO Q4H PRN #30 tab 06/21/18 Rx morphine 30 mg PO Q12H #28 tab 06/21/18 Rx sennosides [senna] 8.6 mg PO BID 06/21/18 06/21/18 History Allergies Allergy/AdvReac Type Severity Reaction Status Date / Time clindamycin Allergy Unknown Verified 05/24/18 09:54 levofloxacin [From Levaquin] Allergy Verified 05/24/18 09:53 Penicillins Allergy Verified 05/24/18 09:54 Exam Vital signs: Last Vital Signs Temp 97.2 F L 06/21/18 15:19 Pulse 112 H 06/21/18 15:19 Resp 18 06/21/18 15:19 BP 136/79 12/03/18 15:19 Pulse Ox 97 06/21/18 15:19 ECOG 1 Narrative: Constitutional: well developed, obese, NAD, well groomed, cooperative, anxious HEENT: Normocephalic atraumatic. Extraocular muscle movement intact. Pupils are round, equal and reactive to light and accommodations. Anicteric sclera. No hearing difficulty; Oral mucus membrane moist and without ulcers. Neck: Supple, symmetrical, and tracheal midline; No palpable thyromegaly and no palpable lymph nodes. There is a hard 1 cm mass underneath the skin on the back of the neck. Respiratory: No use of accessory muscles. Clear to auscultation, and no wheezes or rales or rubs. Cardiovascular: Regular rate and rhythm, S1 and S2 normal, no murmurs gallops or rubs. No JVD. No pitting edema of lower extremities. Abdomen: Soft, nontender, non-distended, bowel sounds normal, no palpable organomegaly, no hernia, no palpable masses. Lower extremities: No palpable pedal edema. Lymphatic: no palpable lymph nodes in the neck, axillae, or groins. Skin: no rashes, no ulcers, no petechiae Neurological: Awake and alert and oriented x3. CN II-XII grossly intact. No focal motor or sensory deficit. Psychiatric: Good judgment, good insight, normal affect, normal thought process, cooperative, no depression, no anxiety. Breast exams: Deferred. Results - Labs Laboratory Last Values WBC 7.0 X10^3/uL (4.5-11.0) 06/18/18 14:14 RBC 4.11 X10^6/uL (4.0-5.2) 06/18/18 14:14 Hgb 12.7 g/dL (12.0-16.0) 06/18/18 14:14 Hct 37.1 % (36-46) 06/18/18 14:14 MCV 90.2 fL (80-100) 06/18/18 14:14 MCH 30.9 PG (26-34) 06/18/18 14:14 MCHC 34.3 % (30-36) 06/18/18 14:14 RDW 14.1 % (11.6-14.8) 06/18/18 14:14 Plt Count 367 X10^3/uL (150-400) 06/18/18 14:14 Neut % (Auto) 56.4 % (50-75) 06/18/18 14:14 Lymph % (Auto) 29.2 % (25-40) 06/18/18 14:14 [place] % (Auto) 9.1 % (3-14) 06/18/18 14:14 Eos % (Auto) 4.4 % (2-4) H 06/18/18 14:14 Baso % (Auto) 0.9 % (0-2) 06/18/18 14:14 Neut # (Auto) 4000 /uL (0069-8191) 06/18/18 14:14 Sodium 141 mmol/L (137-145) 06/18/18 14:14 Potassium 4.6 mmol/L (3.4-5.1) 06/18/18 14:14 Chloride 104 mmol/L (98-107) 06/18/18 14:14 Carbon Dioxide 27 mmol/L (22-32) 06/18/18 14:14 BUN 14 mg/dL (7-17) 06/18/18 14:14 Creatinine 0.70 mg/dL (0.52-1.04) 06/18/18 14:14 Estimated GFR > 60.0 mL/min (>60) 06/18/18 14:14 BUN/Creatinine Ratio 20.0 (6-22) 06/18/18 14:14 Glucose 98 mg/dL (70-100) 06/18/18 14:14 Calcium 9.3 mg/dL (8.4-10.2) 06/18/18 14:14 Total Bilirubin 0.2 mg/dL (0.2-1.3) 06/18/18 14:14 AST 27 IU/L (14-36) 06/18/18 14:14 ALT 37 IU/L (9-52) 06/18/18 14:14 Alkaline Phosphatase 301 U/L (38-126) H 06/18/18 14:14 Total Protein 7.5 g/dL (6.3-8.2) 06/18/18 14:14 Albumin 4.3 g/dL (3.5-5.0) 06/18/18 14:14 Globulin 3.2 g/dL (1.7-4.1) 06/18/18 14:14 Albumin/Globulin Ratio 1.3 (1.0-2.8) 06/18/18 14:14 Assessment and Plan (1) Primary cancer of right breast with metastasis to other site Problem details: Metastatic right breast IDC, mod differentiated, ER positive (3+, 70% of cells), MS positive (2 to 3+, 30% of cells), Ki 67 intermediate (10% of cells) and HER2 negative (0+, 0% of cells). Metastatic sites include multifocal osseous metastatic disease (bone scan and CT scan), axillary lymphadenopathy, pulmonary nodules with lymphangitic carcinomatosis, bilateral pleural effusions, mediastinal lymph nodes. Assessment: Patient has ER positive MS positive HER2 negative metastatic breast cancer. I talked with the patient once again that the Backbone of the treatment for hormone receptor positive metastatic breast cancer is endocrine therapy. Given uncertainty about her menstrual status, I will continue treatment with letrozole and goserelin. Plan: 1. Continue Goserolin 3.6 mg monthly, started 05/24/2018 Ok to proceed to C2# injection today Next injection 07/22/2018 2. Continue Letrazole 2.5 mg daily, started 05/24/2018 3. Palbciclib 125 mg daily on days 1-21 every 28 days once received. 4. Xgeva 120 mg subQ every month when approved. Will need Dr. Branham clearance letter for Xgeva 5. RTC in 2 weeks, CBC, CMP (2) Pain of multiple sites Problem details: Likely related to extensive bone metastasis. Assessment: The patient has extensive whole body pain affecting the cervical, upper chest back and lower back as well as the lower extremities. Explained to the patient about the Nocardia use in cancer patients. I talked with her and her that at our clinic with only provide narcotics for patient with cancer related pain. I talked with them that there are [facility] requirement if it is not cancer related pain. I talked with the patient that patient has to come to our clinic to get the actual paper prescription for the narcotics. If the medication gets lost, stolen etc, it will not be reviewed until the next due date. I also talked with the patient that we will do drug screen on a on a nonstop basis. Patient and patient's both voiced understanding. Plan: 1. Morphine ER 30 mg q12h, 30# written 2. Hydrocodone 5/325 x 30#, 1-3# qd prn pain 3. Continue Diclofenac.
--- NOTE | 2018-06-21 15:13 | P.PNONC_ITS ---
PN -Subjective Interval history: This is a 52-year-old female with newly diagnosed ER positive IA positive HER2 negative metastatic right breast cancer with involvement of bilateral lungs, bilateral pleural effusion, widespread osseus metastasis, mediastinum lymph nodes involvement. Patient currently is taking goserelin, and letrozole. She presents here today for goserelin injection. Patient overall has tolerated the letrozole and goserelin fairly well. Patient has some vaginal bleeding and is now being followed by her crimping press operator. Patient recently underwent pelvic ultrasound with endovaginal examination and it showed diffusely heterogeneous uterus with several suspected poorly diff initiated fibroids and diffuse non- discrete myomatous change and adenomyosis; ovaries are not visualized, and the endometrium is not well delineated. Patient is complaining of back pain and she is very much worried about that the cancer may have already invaded her brain or the cancer is trying to invade down the femurs bilaterally. Patient denies any headache. However she does report some blurred vision and double vision. She is very much concerned. She does not have any chest pain or abdominal pain. Recently she was seen by her primary care provider Dr. Wells. I received a letter from Dr. Wells wishing to transfer cancer pain management to our clinic. The patient currently is taking MS Contin 30 mg every 12 hr and hydrocodone 5/325, 1#-3# tablets per day for breakthrough pain in addition to use the diclofenac. Interestingly patient said that diclofenac has been very effective in controlling her back pain. I also received a letter from Dr. Kim Branham DDS stating that at this time, there are no dental needs that would cause concern with her planned medications. Domi has clearance to take bisphosphonate class medications. On 06/09/2018, patient underwent PET scan. The PET scan showed a 2.7 x 3.2 cm mass in the right breast consistent with the biopsy-proven primary neoplasm, widespread osseus metastasis with innumerable lytic bone lesions with increased FDG uptake, small pulmonary nodules with low FDG uptake, small mediastinal and right axillary lymph nodes with low level FDG activity, small right effusion and trace left pleural effusion, a focal uptake in the right subscapular muscle at enlarged myomatous uterus. - Patient Self-Reported Symptoms SR Constitution: Fatigue/Malaise SR eye issues: Vision changes SR ears, nose, mouth, throat issues: Hoarseness SR respiratory issues: Coughing blood SR Cardiovascular issues: Palpitations, Chest pain, discomfort, tightness, Shortness of breath with activity or lying flat, Dizzy/lightheaded SR Skin issues: Dry skin, Hair loss or scalp prob SR Gastrointestinal issues: Change in bowel pattern, Constipation, Abdominal pain, Heartburn SR Genitourinary issues: Frequent urination, Change in stream, Incontinence, Vaginal bleeding SR Musculoskeletal issues: Muscle weakness, Muscle pain or cramps, Back or neck pain, Cold hands or feet, Difficulty walking, Bone pain SR Neuro issues: Headache, Lightheaded/dizzy, Numbness or tingling, Difficulty balancing SR Hematologic issues: Swollen lymph nodes SR Endocrine issues: Excessive thirst, Hot flashes Home Medications and Allergies Home Medications Medication Instructions Recorded Confirmed Type diclofenac potassium 50 mg PO DAILY PRN 05/24/18 05/24/18 History goserelin 3.6 mg SUBCUT Q28D #10 ea 05/24/18 Rx letrozole [Femara] 2.5 mg PO DAILY #90 tab 05/24/18 Rx palbociclib [Ibrance] 125 mg PO DAILY #21 cap 05/24/18 Rx lorazepam 1 mg PO BID-TID PRN 06/01/18 06/01/18 History amitriptyline 25 mg PO DAILY 06/07/18 06/07/18 History mirtazapine 06/07/18 History palbociclib [Ibrance] 125 mg PO DAILY #21 cap 06/07/18 06/21/18 Rx ondansetron 8 mg PO Q6HR PRN #30 tab 06/15/18 Rx hydrocodone-acetaminophen 1 tab PO Q4H PRN #30 tab 06/21/18 Rx morphine 30 mg PO Q12H #28 tab 06/21/18 Rx sennosides [senna] 8.6 mg PO BID 06/21/18 06/21/18 History Allergies Allergy/AdvReac Type Severity Reaction Status Date / Time clindamycin Allergy Unknown Verified 05/24/18 09:54 levofloxacin [From Levaquin] Allergy Verified 05/24/18 09:53 Penicillins Allergy Verified 05/24/18 09:54 Exam Vital signs: Last Vital Signs Temp 97.2 F L 06/21/18 15:19 Pulse 112 H 06/21/18 15:19 Resp 18 06/21/18 15:19 BP 136/79 12/03/18 15:19 Pulse Ox 97 06/21/18 15:19 ECOG 1 Narrative: Constitutional: well developed, obese, NAD, well groomed, cooperative, anxious HEENT: Normocephalic atraumatic. Extraocular muscle movement intact. Pupils are round, equal and reactive to light and accommodations. Anicteric sclera. No hearing difficulty; Oral mucus membrane moist and without ulcers. Neck: Supple, symmetrical, and tracheal midline; No palpable thyromegaly and no palpable lymph nodes. There is a hard 1 cm mass underneath the skin on the back of the neck. Respiratory: No use of accessory muscles. Clear to auscultation, and no wheezes or rales or rubs. Cardiovascular: Regular rate and rhythm, S1 and S2 normal, no murmurs gallops or rubs. No JVD. No pitting edema of lower extremities. Abdomen: Soft, nontender, non-distended, bowel sounds normal, no palpable organomegaly, no hernia, no palpable masses. Lower extremities: No palpable pedal edema. Lymphatic: no palpable lymph nodes in the neck, axillae, or groins. Skin: no rashes, no ulcers, no petechiae Neurological: Awake and alert and oriented x3. CN II-XII grossly intact. No focal motor or sensory deficit. Psychiatric: Good judgment, good insight, normal affect, normal thought process , cooperative, no depression, no anxiety. Breast exams: Deferred. Results - Labs Laboratory Last Values WBC 7.0 X10^3/uL (4.5-11.0) 06/18/18 14:14 RBC 4.11 X10^6/uL (4.0-5.2) 06/18/18 14:14 Hgb 12.7 g/dL (12.0-16.0) 06/18/18 14:14 Hct 37.1 % (36-46) 06/18/18 14:14 MCV 90.2 fL (80-100) 06/18/18 14:14 MCH 30.9 PG (26-34) 06/18/18 14:14 MCHC 34.3 % (30-36) 06/18/18 14:14 RDW 14.1 % (11.6-14.8) 06/18/18 14:14 Plt Count 367 X10^3/uL (150-400) 06/18/18 14:14 Neut % (Auto) 56.4 % (50-75) 06/18/18 14:14 Lymph % (Auto) 29.2 % (25-40) 06/18/18 14:14 [place] % (Auto) 9.1 % (3-14) 06/18/18 14:14 Eos % (Auto) 4.4 % (2-4) H 06/18/18 14:14 Baso % (Auto) 0.9 % (0-2) 06/18/18 14:14 Neut # (Auto) 4000 /uL (9198-7873) 06/18/18 14:14 Sodium 141 mmol/L (137-145) 06/18/18 14:14 Potassium 4.6 mmol/L (3.4-5.1) 06/18/18 14:14 Chloride 104 mmol/L (98-107) 06/18/18 14:14 Carbon Dioxide 27 mmol/L (22-32) 06/18/18 14:14 BUN 14 mg/dL (7-17) 06/18/18 14:14 Creatinine 0.70 mg/dL (0.52-1.04) 06/18/18 14:14 Estimated GFR > 60.0 mL/min (>60) 06/18/18 14:14 BUN/Creatinine Ratio 20.0 (6-22) 06/18/18 14:14 Glucose 98 mg/dL (70-100) 06/18/18 14:14 Calcium 9.3 mg/dL (8.4-10.2) 06/18/18 14:14 Total Bilirubin 0.2 mg/dL (0.2-1.3) 06/18/18 14:14 AST 27 IU/L (14-36) 06/18/18 14:14 ALT 37 IU/L (9-52) 06/18/18 14:14 Alkaline Phosphatase 301 U/L (38-126) H 06/18/18 14:14 Total Protein 7.5 g/dL (6.3-8.2) 06/18/18 14:14 Albumin 4.3 g/dL (3.5-5.0) 06/18/18 14:14 Globulin 3.2 g/dL (1.7-4.1) 06/18/18 14:14 Albumin/Globulin Ratio 1.3 (1.0-2.8) 06/18/18 14:14 Assessment and Plan (1) Primary cancer of right breast with metastasis to other site Problem details: Metastatic right breast IDC, mod differentiated, ER positive (3 +, 70% of cells), IA positive (2 to 3+, 30% of cells), Ki 67 intermediate (10% of cells) and HER2 negative (0+, 0% of cells). Metastatic sites include multifocal osseous metastatic disease (bone scan and CT scan), axillary lymphadenopathy, pulmonary nodules with lymphangitic carcinomatosis, bilateral pleural effusions, mediastinal lymph nodes. Assessment: Patient has ER positive IA positive HER2 negative metastatic breast cancer. I talked with the patient once again that the Backbone of the treatment for hormone receptor positive metastatic breast cancer is endocrine therapy. Given uncertainty about her menstrual status, I will continue treatment with letrozole and goserelin. Plan: 1. Continue Goserolin 3.6 mg monthly, started 05/24/2018 Ok to proceed to C2# injection today Next injection 07/22/2018 2. Continue Letrazole 2.5 mg daily, started 05/24/2018 3. Palbciclib 125 mg daily on days 1-21 every 28 days once received. 4. Xgeva 120 mg subQ every month when approved. Will need Dr. Branham clearance letter for Xgeva 5. RTC in 2 weeks, CBC, CMP (2) Pain of multiple sites Problem details: Likely related to extensive bone metastasis. Assessment: The patient has extensive whole body pain affecting the cervical, upper chest back and lower back as well as the lower extremities. Explained to the patient about the Nocardia use in cancer patients. I talked with her and her that at our clinic with only provide narcotics for patient with cancer related pain. I talked with them that there are [facility] requirement if it is not cancer related pain. I talked with the patient that patient has to come to our clinic to get the actual paper prescription for the narcotics. If the medication gets lost, stolen etc, it will not be reviewed until the next due date. I also talked with the patient that we will do drug screen on a on a nonstop basis. Patient and patient's both voiced understanding. Plan: 1. Morphine ER 30 mg q12h, 30# written 2. Hydrocodone 5/325 x 30#, 1-3# qd prn pain 3. Continue Diclofenac.
[2018-06-21 15:19] VITALS: BP 136/79; PULSE 112; RESP 18; TEMP 36.2; O2SAT 97
[2018-06-21] MEDS: GOSERELIN 3.6 MG SUBCUT (16:24)
--- NOTE | 2018-06-23 14:42 | PC.NURSE ---
Received message on triage line that pt is experiencing blood in my stool. Returned phone call to get more information about this however no answer so left message requesting pt to return call to discuss further.
--- NOTE | 2018-06-23 16:19 | PC.NURSE ---
Domi called today to report that she saw blood streaks embedded in my stool. This was noted at 230 am. Looked up side effect profile for letrozole,Zoladex. Blood in stool is not listed as a potential side effect. Requested pt to call PCP Dr Wells to be evaluated for this issue. Pt states she has already been on the phone and left message for them. She will try to be seen before the weekend. She states there is no blood on the tissue when she wipes. When asked if she is experiencing abdominal pain, pt states I have pain everywhere. When asked if she has been having a fever, she states it's hard to know because she has been experiencing hot flashes.
--- NOTE | 2018-07-05 15:30 | ONC.PN ---
PN -Subjective Interval history: This is a 52-year-old female with newly diagnosed ER positive MI positive HER2 negative metastatic right breast cancer with involvement of bilateral lungs, bilateral pleural effusion, widespread osseous metastasis, mediastinum lymph nodes involvement. Patient currently is taking goserelin started on 05/24/2018, and letrozole started 06/01/2018. And she started taking palbociclib 125 mg daily on 06/28/2018. Patient overall tolerated well. Patient reported mild little nausea. No vomiting. Patient complains of significant hot flashes, sweating, and alternating hot and cold. Patient also report more tired than before and had total a down a lot. Patient presents here today for scheduled follow-up visit as well as for initiation of treatment with Xgeva. I have received the clearance letter from Dr. Jeronimo Branham DDS. The patient currently is also taking MS Contin 30 mg every 12 hr and hydrocodone 5/325, 1#-3# tablets per day for breakthrough pain in addition to use the diclofenac. Interestingly patient said that diclofenac has been very effective in controlling her back pain. Today, patient reported significant vision problems symptoms double vision. In addition she claimed that she was having difficulty finding correct word well speaking. She was also having some balancing issues. - Patient Self-Reported Symptoms SR Constitution: Fatigue/Malaise SR eye issues: Vision changes SR ears, nose, mouth, throat issues: Hoarseness SR respiratory issues: Coughing blood SR Cardiovascular issues: Palpitations, Chest pain, discomfort, tightness, Shortness of breath with activity or lying flat, Dizzy/lightheaded SR Skin issues: Dry skin, Hair loss or scalp prob SR Gastrointestinal issues: Change in bowel pattern, Constipation, Abdominal pain, Heartburn SR Genitourinary issues: Frequent urination, Change in stream, Incontinence, Vaginal bleeding SR Musculoskeletal issues: Muscle weakness, Muscle pain or cramps, Back or neck pain, Cold hands or feet, Difficulty walking, Bone pain SR Neuro issues: Headache, Lightheaded/dizzy, Numbness or tingling, Difficulty balancing SR Hematologic issues: Swollen lymph nodes SR Endocrine issues: Excessive thirst, Hot flashes - Additional ROS All systems PM: reviewed and no additional remarkable complaints except as stated Home Medications and Allergies Home Medications Medication Instructions Recorded Confirmed Type diclofenac potassium 50 mg PO DAILY PRN 05/24/18 05/24/18 History goserelin 3.6 mg SUBCUT Q28D #10 ea 05/24/18 Rx letrozole [Femara] 2.5 mg PO DAILY #90 tab 05/24/18 Rx palbociclib [Ibrance] 125 mg PO DAILY #21 cap 05/24/18 Rx lorazepam 1 mg PO BID-TID PRN 06/01/18 06/01/18 History amitriptyline 25 mg PO DAILY 06/07/18 06/07/18 History mirtazapine 06/07/18 History palbociclib [Ibrance] 125 mg PO DAILY #21 cap 06/07/18 06/21/18 Rx ondansetron 8 mg PO Q6HR PRN #30 tab 06/15/18 Rx sennosides [senna] 8.6 mg PO BID 06/21/18 06/21/18 History hydrocodone-acetaminophen 1 tab PO Q4H PRN #30 tab 07/05/18 Rx morphine 30 mg PO Q12H #28 tab 07/05/18 Rx Allergies Allergy/AdvReac Type Severity Reaction Status Date / Time clindamycin Allergy Unknown Verified 05/24/18 09:54 levofloxacin [From Levaquin] Allergy Verified 05/24/18 09:53 Penicillins Allergy Verified 05/24/18 09:54 Exam Vital signs: Last Vital Signs Temp 99.0 F 07/05/18 15:37 Pulse 98 H 07/05/18 15:37 Resp 18 07/05/18 15:37 BP 111/67 07/05/18 15:37 Pulse Ox 98 07/05/18 15:37 ECOG 1 Narrative: Constitutional: well developed, obese, NAD, well groomed, cooperative, anxious HEENT: Normocephalic atraumatic. Extraocular muscle movement intact. Pupils are round, equal and reactive to light and accommodations. Anicteric sclera. No hearing difficulty; Oral mucus membrane moist and without ulcers. Neck: Supple, symmetrical, and tracheal midline; No palpable thyromegaly and no palpable lymph nodes. There is a hard 1 cm mass underneath the skin on the back of the neck. Respiratory: No use of accessory muscles. Clear to auscultation, and no wheezes or rales or rubs. Cardiovascular: Regular rate and rhythm, S1 and S2 normal, no murmurs gallops or rubs. No JVD. No pitting edema of lower extremities. Abdomen: Soft, nontender, non-distended, bowel sounds normal, no palpable organomegaly, no hernia, no palpable masses. Lower extremities: No palpable pedal edema. Lymphatic: no palpable lymph nodes in the neck, axillae, or groins. Skin: no rashes, no ulcers, no petechiae Neurological: Awake and alert and oriented x3. CN II-XII grossly intact. No focal motor or sensory deficit. Psychiatric: Good judgment, good insight, normal affect, normal thought process, cooperative, no depression, no anxiety. Breast exams: Deferred. Results - Labs Laboratory Last Values WBC 4.6 X10^3/uL (4.5-11.0) 07/05/18 15:25 RBC 4.06 X10^6/uL (4.0-5.2) 07/05/18 15:25 Hgb 12.4 g/dL (12.0-16.0) 07/05/18 15:25 Hct 37.1 % (36-46) 07/05/18 15:25 MCV 91.3 fL (80-100) 07/05/18 15:25 MCH 30.6 PG (26-34) 07/05/18 15:25 MCHC 33.5 % (30-36) 07/05/18 15:25 RDW 14.2 % (11.6-14.8) 07/05/18 15:25 Plt Count 368 X10^3/uL (150-400) 07/05/18 15:25 Neut % (Auto) 46.7 % (50-75) L 07/05/18 15:25 Lymph % (Auto) 42.2 % (25-40) H 07/05/18 15:25 [place] % (Auto) 4.2 % (3-14) 07/05/18 15:25 Eos % (Auto) 5.8 % (2-4) H 07/05/18 15:25 Baso % (Auto) 1.1 % (0-2) 07/05/18 15:25 Neut # (Auto) 2100 /uL (1121-7122) 07/05/18 15:25 Sodium 141 mmol/L (137-145) 07/05/18 15:25 Potassium 4.6 mmol/L (3.4-5.1) 07/05/18 15:25 Chloride 105 mmol/L (98-107) 07/05/18 15:25 Carbon Dioxide 24 mmol/L (22-32) 07/05/18 15:25 BUN 16 mg/dL (7-17) 07/05/18 15:25 Creatinine 0.80 mg/dL (0.52-1.04) 07/05/18 15:25 Estimated GFR > 60.0 mL/min (>60) 07/05/18 15:25 BUN/Creatinine Ratio 20.0 (6-22) 07/05/18 15:25 Glucose 101 mg/dL (70-100) H 07/05/18 15:25 Calcium 9.3 mg/dL (8.4-10.2) 07/05/18 15:25 Total Bilirubin 0.2 mg/dL (0.2-1.3) 07/05/18 15:25 AST 20 IU/L (14-36) 07/05/18 15:25 ALT 32 IU/L (9-52) 07/05/18 15:25 Alkaline Phosphatase 235 U/L (38-126) H 07/05/18 15:25 Total Protein 7.4 g/dL (6.3-8.2) 07/05/18 15:25 Albumin 4.3 g/dL (3.5-5.0) 07/05/18 15:25 Globulin 3.1 g/dL (1.7-4.1) 07/05/18 15:25 Albumin/Globulin Ratio 1.4 (1.0-2.8) 07/05/18 15:25 Assessment and Plan (1) Primary cancer of right breast with metastasis to other site Problem details: Metastatic right breast IDC, mod differentiated, ER positive (3+, 70% of cells), MI positive (2 to 3+, 30% of cells), Ki 67 intermediate (10% of cells) and HER2 negative (0+, 0% of cells). Metastatic sites include multifocal osseous metastatic disease (bone scan and CT scan), axillary lymphadenopathy, pulmonary nodules with lymphangitic carcinomatosis, bilateral pleural effusions, mediastinal lymph nodes. Assessment: Patient has ER positive MI positive HER2 negative metastatic breast cancer. I talked with the patient once again that the Backbone of the treatment for hormone receptor positive metastatic breast cancer is endocrine therapy. Given uncertainty about her menstrual status, I will continue treatment with letrozole and goserelin. Patient has extensive questions regarding the treatment of bone disease. Patient was under the impression that the Xgeva might be urgently needed otherwise she would have had immediate fracture. I explained to the patient that the Xgeva is used to prevent further bone loss and improve the bone density. And the goal is trying to help prevent skeletal related events. It will not take effect immediately. Patient voiced understanding. Since Doctor Carrol has already cleared her for dental concern, I will proceed with treatment today. Plan: 1. Continue Goserolin 3.6 mg monthly, started 05/24/2018 Ok to proceed to C2# injection today Next injection 07/22/2018 2. Continue Letrazole 2.5 mg daily, started 06/01/2018 3. Palbciclib 125 mg daily on days 1-21 every 28 days, started 06/28/2018. 4. Start Xgeva 120 mg subQ today (07/05/2018) and continue every month 5. RTC in 2 weeks, CBC, CMP. (2) Pain of multiple sites Problem details: Likely related to extensive bone metastasis. Assessment: The patient has extensive whole body pain affecting the cervical, upper chest, upper back and lower back as well as the lower extremities. During her previous visit, we have explained about the policy of narcotic use in cancer patients. I emphasized that we only provide narcotics for cancer related pain in our clinic. And we will do drug screen on a non-announced basis Plan: 1. Continue Morphine ER 30 mg q12h, 30# written 2. Continue Hydrocodone 5/325 x 30#, 1-3# qd prn pain 3. Continue Diclofenac.
[2018-07-05 15:37] VITALS: BP 111/67; PULSE 98; RESP 18; TEMP 37.2; O2SAT 98
[2018-07-05 15:38] LABS: Add Manual Diff / Slide Review NO; Basophils Percent Auto 1.1 % (0-2); Eosinophils Percent Auto 5.8 % (2-4); Hematocrit 37.1 % (36-46); Hemoglobin 12.4 g/dL (12.0-16.0); Lymphocytes Percent Auto 42.2 % (25-40); Mean Corpuscular HGB Conc 33.5 % (30-36); Mean Corpuscular Hemoglobin 30.6 PG (26-34); Mean Corpuscular Volume 91.3 fL (80-100); Monocytes Percent Auto 4.2 % (3-14); Neutrophils Absolute Auto 2100 /uL (1500-7000); Neutrophils Percent Auto 46.7 % (50-75); Platelet Count 368 X10^3/uL (150-400); Red Blood Cell Count 4.06 X10^6/uL (4.0-5.2); Red Cell Distribution Width 14.2 % (11.6-14.8); White Blood Cell Count 4.6 X10^3/uL (4.5-11.0)
--- NOTE | 2018-07-05 15:38 | P.PNONC_ITS ---
PN -Subjective Interval history: This is a 52-year-old female with newly diagnosed ER positive AL positive HER2 negative metastatic right breast cancer with involvement of bilateral lungs, bilateral pleural effusion, widespread osseous metastasis, mediastinum lymph nodes involvement. Patient currently is taking goserelin started on 05/24/2018 , and letrozole started 06/01/2018. And she started taking palbociclib 125 mg daily on 06/28/2018. Patient overall tolerated well. Patient reported mild little nausea. No vomiting. Patient complains of significant hot flashes, sweating, and alternating hot and cold. Patient also report more tired than before and had total a down a lot. Patient presents here today for scheduled follow-up visit as well as for initiation of treatment with Xgeva. I have received the clearance letter from Dr. Jeronimo Branham DDS. The patient currently is also taking MS Contin 30 mg every 12 hr and hydrocodone 5/325, 1#-3# tablets per day for breakthrough pain in addition to use the diclofenac. Interestingly patient said that diclofenac has been very effective in controlling her back pain. Today, patient reported significant vision problems symptoms double vision. In addition she claimed that she was having difficulty finding correct word well speaking. She was also having some balancing issues. - Patient Self-Reported Symptoms SR Constitution: Fatigue/Malaise SR eye issues: Vision changes SR ears, nose, mouth, throat issues: Hoarseness SR respiratory issues: Coughing blood SR Cardiovascular issues: Palpitations, Chest pain, discomfort, tightness, Shortness of breath with activity or lying flat, Dizzy/lightheaded SR Skin issues: Dry skin, Hair loss or scalp prob SR Gastrointestinal issues: Change in bowel pattern, Constipation, Abdominal pain, Heartburn SR Genitourinary issues: Frequent urination, Change in stream, Incontinence, Vaginal bleeding SR Musculoskeletal issues: Muscle weakness, Muscle pain or cramps, Back or neck pain, Cold hands or feet, Difficulty walking, Bone pain SR Neuro issues: Headache, Lightheaded/dizzy, Numbness or tingling, Difficulty balancing SR Hematologic issues: Swollen lymph nodes SR Endocrine issues: Excessive thirst, Hot flashes - Additional ROS All systems PM: reviewed and no additional remarkable complaints except as stated Home Medications and Allergies Home Medications Medication Instructions Recorded Confirmed Type diclofenac potassium 50 mg PO DAILY PRN 05/24/18 05/24/18 History goserelin 3.6 mg SUBCUT Q28D #10 ea 05/24/18 Rx letrozole [Femara] 2.5 mg PO DAILY #90 tab 05/24/18 Rx palbociclib [Ibrance] 125 mg PO DAILY #21 cap 05/24/18 Rx lorazepam 1 mg PO BID-TID PRN 06/01/18 06/01/18 History amitriptyline 25 mg PO DAILY 06/07/18 06/07/18 History mirtazapine 06/07/18 History palbociclib [Ibrance] 125 mg PO DAILY #21 cap 06/07/18 06/21/18 Rx ondansetron 8 mg PO Q6HR PRN #30 tab 06/15/18 Rx sennosides [senna] 8.6 mg PO BID 06/21/18 06/21/18 History hydrocodone-acetaminophen 1 tab PO Q4H PRN #30 tab 07/05/18 Rx morphine 30 mg PO Q12H #28 tab 07/05/18 Rx Allergies Allergy/AdvReac Type Severity Reaction Status Date / Time clindamycin Allergy Unknown Verified 05/24/18 09:54 levofloxacin [From Levaquin] Allergy Verified 05/24/18 09:53 Penicillins Allergy Verified 05/24/18 09:54 Exam Vital signs: Last Vital Signs Temp 99.0 F 07/05/18 15:37 Pulse 98 H 07/05/18 15:37 Resp 18 07/05/18 15:37 BP 111/67 07/05/18 15:37 Pulse Ox 98 07/05/18 15:37 ECOG 1 Narrative: Constitutional: well developed, obese, NAD, well groomed, cooperative, anxious HEENT: Normocephalic atraumatic. Extraocular muscle movement intact. Pupils are round, equal and reactive to light and accommodations. Anicteric sclera. No hearing difficulty; Oral mucus membrane moist and without ulcers. Neck: Supple, symmetrical, and tracheal midline; No palpable thyromegaly and no palpable lymph nodes. There is a hard 1 cm mass underneath the skin on the back of the neck. Respiratory: No use of accessory muscles. Clear to auscultation, and no wheezes or rales or rubs. Cardiovascular: Regular rate and rhythm, S1 and S2 normal, no murmurs gallops or rubs. No JVD. No pitting edema of lower extremities. Abdomen: Soft, nontender, non-distended, bowel sounds normal, no palpable organomegaly, no hernia, no palpable masses. Lower extremities: No palpable pedal edema. Lymphatic: no palpable lymph nodes in the neck, axillae, or groins. Skin: no rashes, no ulcers, no petechiae Neurological: Awake and alert and oriented x3. CN II-XII grossly intact. No focal motor or sensory deficit. Psychiatric: Good judgment, good insight, normal affect, normal thought process , cooperative, no depression, no anxiety. Breast exams: Deferred. Results - Labs Laboratory Last Values WBC 4.6 X10^3/uL (4.5-11.0) 07/05/18 15:25 RBC 4.06 X10^6/uL (4.0-5.2) 07/05/18 15:25 Hgb 12.4 g/dL (12.0-16.0) 07/05/18 15:25 Hct 37.1 % (36-46) 07/05/18 15:25 MCV 91.3 fL (80-100) 07/05/18 15:25 MCH 30.6 PG (26-34) 07/05/18 15:25 MCHC 33.5 % (30-36) 07/05/18 15:25 RDW 14.2 % (11.6-14.8) 07/05/18 15:25 Plt Count 368 X10^3/uL (150-400) 07/05/18 15:25 Neut % (Auto) 46.7 % (50-75) L 07/05/18 15:25 Lymph % (Auto) 42.2 % (25-40) H 07/05/18 15:25 [place] % (Auto) 4.2 % (3-14) 07/05/18 15:25 Eos % (Auto) 5.8 % (2-4) H 07/05/18 15:25 Baso % (Auto) 1.1 % (0-2) 07/05/18 15:25 Neut # (Auto) 2100 /uL (0184-9191) 07/05/18 15:25 Sodium 141 mmol/L (137-145) 07/05/18 15:25 Potassium 4.6 mmol/L (3.4-5.1) 07/05/18 15:25 Chloride 105 mmol/L (98-107) 07/05/18 15:25 Carbon Dioxide 24 mmol/L (22-32) 07/05/18 15:25 BUN 16 mg/dL (7-17) 07/05/18 15:25 Creatinine 0.80 mg/dL (0.52-1.04) 07/05/18 15:25 Estimated GFR > 60.0 mL/min (>60) 07/05/18 15:25 BUN/Creatinine Ratio 20.0 (6-22) 07/05/18 15:25 Glucose 101 mg/dL (70-100) H 07/05/18 15:25 Calcium 9.3 mg/dL (8.4-10.2) 07/05/18 15:25 Total Bilirubin 0.2 mg/dL (0.2-1.3) 07/05/18 15:25 AST 20 IU/L (14-36) 07/05/18 15:25 ALT 32 IU/L (9-52) 07/05/18 15:25 Alkaline Phosphatase 235 U/L (38-126) H 07/05/18 15:25 Total Protein 7.4 g/dL (6.3-8.2) 07/05/18 15:25 Albumin 4.3 g/dL (3.5-5.0) 07/05/18 15:25 Globulin 3.1 g/dL (1.7-4.1) 07/05/18 15:25 Albumin/Globulin Ratio 1.4 (1.0-2.8) 07/05/18 15:25 Assessment and Plan (1) Primary cancer of right breast with metastasis to other site Problem details: Metastatic right breast IDC, mod differentiated, ER positive (3 +, 70% of cells), AL positive (2 to 3+, 30% of cells), Ki 67 intermediate (10% of cells) and HER2 negative (0+, 0% of cells). Metastatic sites include multifocal osseous metastatic disease (bone scan and CT scan), axillary lymphadenopathy, pulmonary nodules with lymphangitic carcinomatosis, bilateral pleural effusions, mediastinal lymph nodes. Assessment: Patient has ER positive AL positive HER2 negative metastatic breast cancer. I talked with the patient once again that the Backbone of the treatment for hormone receptor positive metastatic breast cancer is endocrine therapy. Given uncertainty about her menstrual status, I will continue treatment with letrozole and goserelin. Patient has extensive questions regarding the treatment of bone disease. Patient was under the impression that the Xgeva might be urgently needed otherwise she would have had immediate fracture. I explained to the patient that the Xgeva is used to prevent further bone loss and improve the bone density. And the goal is trying to help prevent skeletal related events. It will not take effect immediately. Patient voiced understanding. Since Doctor Carrol has already cleared her for dental concern, I will proceed with treatment today. Plan: 1. Continue Goserolin 3.6 mg monthly, started 05/24/2018 Ok to proceed to C2# injection today Next injection 07/22/2018 2. Continue Letrazole 2.5 mg daily, started 06/01/2018 3. Palbciclib 125 mg daily on days 1-21 every 28 days, started 06/28/2018. 4. Start Xgeva 120 mg subQ today (07/05/2018) and continue every month 5. RTC in 2 weeks, CBC, CMP. (2) Pain of multiple sites Problem details: Likely related to extensive bone metastasis. Assessment: The patient has extensive whole body pain affecting the cervical, upper chest, upper back and lower back as well as the lower extremities. During her previous visit, we have explained about the policy of narcotic use in cancer patients. I emphasized that we only provide narcotics for cancer related pain in our clinic. And we will do drug screen on a non-announced basis Plan: 1. Continue Morphine ER 30 mg q12h, 30# written 2. Continue Hydrocodone 5/325 x 30#, 1-3# qd prn pain 3. Continue Diclofenac.
[2018-07-05 15:59] LABS: Alanine Aminotransferase 32 IU/L (9-52); Albumin 4.3 g/dL (3.5-5.0); Albumin Globulin Ratio 1.4 (1.0-2.8); Alkaline Phosphatase 235 U/L (38-126); Aspartate Aminotransferase 20 IU/L (14-36); Bilirubin Total 0.2 mg/dL (0.2-1.3); Blood Urea Nitrogen 16 mg/dL (7-17); Calcium 9.3 mg/dL (8.4-10.2); Carbon Dioxide 24 mmol/L (22-32); Chloride 105 mmol/L (98-107); Estimated Glomerular Filt Rate > 60.0 mL/min (>60); Globulin 3.1 g/dL (1.7-4.1); Glucose 101 mg/dL (70-100); HEMOLYSIS < 15 (0-50); Potassium 4.6 mmol/L (3.4-5.1); Sodium 141 mmol/L (137-145); Total Protein 7.4 g/dL (6.3-8.2)
[2018-07-05] MEDS: DENOSUMAB 120 MG/1.7 ML VIAL SUBCUT (16:39)
--- NOTE | 2018-07-09 09:26 | CM.DPNOTE ---
VM received in error: Received call from Dr Alyx Wells's office, VM left on desk line [phone]. Voice Msg: Domi had an appt w/BLANKA Fuentes (in Dr Wells's office)on the morning of 07.08.18 and had relayed she wanted to speak w/Vi more. RN called Vi to relay this request from Domi and Msg included Domi's number [phone]. Looked up pt's name and in [facility] and then relayed above to oncology patient navigator Vi Pires. Ana Aguilar, [employer] Care Management
[2018-07-14 13:59] LABS: Add Manual Diff / Slide Review NO; Basophils Percent Auto 0.5 % (0-2); Eosinophils Percent Auto 2.4 % (2-4); Hematocrit 34.4 % (36-46); Hemoglobin 11.8 g/dL (12.0-16.0); Mean Corpuscular HGB Conc 34.4 % (30-36); Mean Corpuscular Hemoglobin 31.3 PG (26-34); Monocytes Percent Auto 7.2 % (3-14); Neutrophils Absolute Auto 1600 /uL (1500-7000); Neutrophils Percent Auto 37.9 % (50-75); Platelet Count 326 X10^3/uL (150-400); Red Blood Cell Count 3.78 X10^6/uL (4.0-5.2); Red Cell Distribution Width 14.2 % (11.6-14.8); White Blood Cell Count 4.3 X10^3/uL (4.5-11.0)
[2018-07-14 14:10] LABS: Alanine Aminotransferase 31 IU/L (9-52); Albumin 4.4 g/dL (3.5-5.0); Albumin Globulin Ratio 1.4 (1.0-2.8); Alkaline Phosphatase 183 U/L (38-126); Aspartate Aminotransferase 20 IU/L (14-36); Bilirubin Total 0.3 mg/dL (0.2-1.3); Blood Urea Nitrogen 15 mg/dL (7-17); Calcium 9.1 mg/dL (8.4-10.2); Carbon Dioxide 23 mmol/L (22-32); Chloride 104 mmol/L (98-107); Estimated Glomerular Filt Rate 58.2 mL/min (>60); Globulin 3.2 g/dL (1.7-4.1); Glucose 126 mg/dL (70-100); HEMOLYSIS < 15 (0-50); Potassium 4.4 mmol/L (3.4-5.1); Sodium 142 mmol/L (137-145); Total Protein 7.6 g/dL (6.3-8.2)
[2018-07-19 14:01] LABS: Add Manual Diff / Slide Review NO; Basophils Percent Auto 0.6 % (0-2); Eosinophils Percent Auto 1.6 % (2-4); Hematocrit 34.3 % (36-46); Hemoglobin 11.7 g/dL (12.0-16.0); Lymphocytes Percent Auto 49.9 % (25-40); Mean Corpuscular Hemoglobin 31.6 PG (26-34); Mean Corpuscular Volume 92.9 fL (80-100); Monocytes Percent Auto 11.5 % (3-14); Neutrophils Absolute Auto 1400 /uL (1500-7000); Neutrophils Percent Auto 36.4 % (50-75); Platelet Count 325 X10^3/uL (150-400); Red Blood Cell Count 3.69 X10^6/uL (4.0-5.2); White Blood Cell Count 3.9 X10^3/uL (4.5-11.0)
[2018-07-19 14:13] LABS: Alanine Aminotransferase 49 IU/L (9-52); Albumin 4.4 g/dL (3.5-5.0); Albumin Globulin Ratio 1.4 (1.0-2.8); Alkaline Phosphatase 180 U/L (38-126); Aspartate Aminotransferase 32 IU/L (14-36); BUN Creatinine Ratio 24.3 (6-22); Bilirubin Total 0.2 mg/dL (0.2-1.3); Blood Urea Nitrogen 17 mg/dL (7-17); Calcium 9.1 mg/dL (8.4-10.2); Carbon Dioxide 24 mmol/L (22-32); Chloride 105 mmol/L (98-107); Estimated Glomerular Filt Rate > 60.0 mL/min (>60); Globulin 3.1 g/dL (1.7-4.1); Glucose 105 mg/dL (70-100); HEMOLYSIS < 15 (0-50); Potassium 4.4 mmol/L (3.4-5.1); Sodium 138 mmol/L (137-145); Total Protein 7.5 g/dL (6.3-8.2)
[2018-07-19 14:38] VITALS: BP 123/62; PULSE 73; RESP 18; TEMP 36.7; O2SAT 98
--- NOTE | 2018-07-19 15:20 | ONC.APRN.PN ---
PN -Subjective Interval history: This is a 52-year-old female with newly diagnosed ER positive [place] positive HER2 negative metastatic right breast cancer with involvement of bilateral lungs, bilateral pleural effusion, widespread osseous metastasis, mediastinum lymph nodes involvement. Patient currently is taking goserelin started on 05/24/2018, and letrozole started 06/01/2018. And she started taking palbociclib 125 mg daily on 06/28/2018. Patient overall tolerated well. Since initiating this treatment patient reports improved range of motion also some improvement in her back pain. Additionally, previously palpable ?mass? on her cervical spine per patient report has gotten smaller. Patient reported mild nausea. No vomiting. Also reports fatigue. She states she has difficulty cleaning her house also difficulty taking a bath. Patient also complains of significant hot flashes, sweating, and alternating hot and cold. The patient currently is also taking MS Contin 30 mg every 12 hr and hydrocodone 5/325, 1#-3# tablets per day for breakthrough pain in addition to use the diclofenac. Also taking diclofenac which pt reports has been very effective in controlling her back pain. Pt presents with a family friend today. She has multiple questions with concerns dating back months and months. She is also concerned about the side effects of Xgeva stating I dont know why I am getting it if there is a increased risk of fracture with it. Pt underwent brain MRI with and without contrast July 14, 2018 which did identify enhancing lesions involving the right frontal calvaruim consistent with osseous metastatic disease. There were no acute intracranial disease process noted. No abnormal or intracranial mass or suspicious intracranial post contrast involvement. These results were reviewed in detail with the pt and her family friend. Pt denies any acute changes on exam today. She reports ongoing neck, back and hip pain however reports it seems to be getting better. Patient denies fever, chills. No diarrhea, constipation. No nausea, abdominal pain. No skin changes to report. No shortness of breath. She does continue to complain of bad fatigue. No new pain, no new lumps or bumps. - Patient Self-Reported Symptoms SR Constitution: Chills, Fatigue/Malaise, Night Sweats SR eye issues: Double vision, Eye pain SR ears, nose, mouth, throat issues: Bleeding gums, Hoarseness, Swollen glands SR respiratory issues: Shortness of breath SR Cardiovascular issues: Chest pain, discomfort, tightness, Shortness of breath with activity or lying flat, Dizzy/lightheaded SR Skin issues: Dry skin, Hair loss or scalp prob SR Gastrointestinal issues: Change in bowel pattern, Diarrhea, Blood in stool SR Genitourinary issues: Frequent urination, Change in stream, Incontinence, Vaginal bleeding SR Musculoskeletal issues: Joint pain or swelling, Muscle weakness, Back or neck pain, Cold hands or feet, Difficulty walking, Bone pain SR Neuro issues: Headache, Lightheaded/dizzy, Difficulty balancing SR Hematologic issues: Slow healing, Swollen lymph nodes SR Endocrine issues: Cold intolerance, Excessive urination Home Medications and Allergies Home Medications Medication Instructions Recorded Confirmed Type diclofenac potassium 50 mg PO DAILY PRN 05/24/18 05/24/18 History goserelin 3.6 mg SUBCUT Q28D #10 ea 05/24/18 Rx letrozole [Femara] 2.5 mg PO DAILY #90 tab 05/24/18 Rx palbociclib [Ibrance] 125 mg PO DAILY #21 cap 05/24/18 Rx lorazepam 1 mg PO BID-TID PRN 06/01/18 06/01/18 History amitriptyline 25 mg PO DAILY 06/07/18 06/07/18 History mirtazapine 06/07/18 History palbociclib [Ibrance] 125 mg PO DAILY #21 cap 06/07/18 06/21/18 Rx ondansetron 8 mg PO Q6HR PRN #30 tab 06/15/18 Rx sennosides [senna] 8.6 mg PO BID 06/21/18 06/21/18 History hydrocodone-acetaminophen 1 tab PO Q4H PRN #30 tab 07/19/18 Rx morphine 30 mg PO Q12H #28 tab 07/19/18 Rx Allergies Allergy/AdvReac Type Severity Reaction Status Date / Time clindamycin Allergy Unknown Verified 05/24/18 09:54 levofloxacin [From Levaquin] Allergy Verified 05/24/18 09:53 Penicillins Allergy Verified 05/24/18 09:54 Exam - Constitutional positive no acute distress - Routine HEENT Exam Eye: Present: conjunctivae pink. Absent: conjunctival icterus, scleral injection ENT: Present: mucous membranes moist, oropharynx clear - Routine Neck Exam Present: supple. Absent: lymphadenopathy - Routine Respiratory Exam Present: Clear to auscultation bilaterally. Absent: rales, rhonchi, wheezes - Routine Cardiovascular Exam Present: RRR, S1, S2. Absent: murmur, gallop, rubs, JVD - Routine Abdominal Exam Present: soft, normoactive bowel sounds. Absent: tenderness, distended, organomegaly - Routine Extremities Exam Absent: edema, calf tenderness - Routine Skin Exam Present: intact, normal turgor. Absent: petechiae, rash - Routine Neurological Exam Present: alert, oriented X3 - Routine Psychiatric Exam Absent: suicidal ideation, depressed Results - Labs Laboratory Last Values WBC 3.9 X10^3/uL (4.5-11.0) L 07/19/18 13:52 RBC 3.69 X10^6/uL (4.0-5.2) L 07/19/18 13:52 Hgb 11.7 g/dL (12.0-16.0) L 07/19/18 13:52 Hct 34.3 % (36-46) L 07/19/18 13:52 MCV 92.9 fL (80-100) 07/19/18 13:52 MCH 31.6 PG (26-34) 07/19/18 13:52 MCHC 34.0 % (30-36) 07/19/18 13:52 RDW 15.0 % (11.6-14.8) H 07/19/18 13:52 Plt Count 325 X10^3/uL (150-400) 07/19/18 13:52 Neut % (Auto) 36.4 % (50-75) L 07/19/18 13:52 Lymph % (Auto) 49.9 % (25-40) H 07/19/18 13:52 [place] % (Auto) 11.5 % (3-14) 07/19/18 13:52 Eos % (Auto) 1.6 % (2-4) L 07/19/18 13:52 Baso % (Auto) 0.6 % (0-2) 07/19/18 13:52 Neut # (Auto) 1400 /uL (4128-2713) L 07/19/18 13:52 Sodium 138 mmol/L (137-145) 07/19/18 13:52 Potassium 4.4 mmol/L (3.4-5.1) 07/19/18 13:52 Chloride 105 mmol/L (98-107) 07/19/18 13:52 Carbon Dioxide 24 mmol/L (22-32) 07/19/18 13:52 BUN 17 mg/dL (7-17) 07/19/18 13:52 Creatinine 0.70 mg/dL (0.52-1.04) 07/19/18 13:52 Estimated GFR > 60.0 mL/min (>60) 07/19/18 13:52 BUN/Creatinine Ratio 24.3 (6-22) H 07/19/18 13:52 Glucose 105 mg/dL (70-100) H 07/19/18 13:52 Calcium 9.1 mg/dL (8.4-10.2) 07/19/18 13:52 Total Bilirubin 0.2 mg/dL (0.2-1.3) 07/19/18 13:52 AST 32 IU/L (14-36) 07/19/18 13:52 ALT 49 IU/L (9-52) 07/19/18 13:52 Alkaline Phosphatase 180 U/L (38-126) H 07/19/18 13:52 Total Protein 7.5 g/dL (6.3-8.2) 07/19/18 13:52 Albumin 4.4 g/dL (3.5-5.0) 07/19/18 13:52 Globulin 3.1 g/dL (1.7-4.1) 07/19/18 13:52 Albumin/Globulin Ratio 1.4 (1.0-2.8) 07/19/18 13:52 Assessment and Plan (1) Primary cancer of right breast with metastasis to other site Problem details: Metastatic right breast IDC, mod differentiated, ER positive (3+, 70% of cells), [place] positive (2 to 3+, 30% of cells), Ki 67 intermediate (10% of cells) and HER2 negative (0+, 0% of cells). Metastatic sites include multifocal osseous metastatic disease (bone scan and CT scan), axillary lymphadenopathy, pulmonary nodules with lymphangitic carcinomatosis, bilateral pleural effusions, mediastinal lymph nodes. Assessment: Patient has ER positive [place] positive HER2 negative metastatic breast cancer. The Backbone of the treatment for hormone receptor positive metastatic breast cancer is endocrine therapy. Patient reports since initiating treatment she is feeling better specifically with less pain also palpable mass in her cervical spine has gotten smaller. Brain MRI with and without contrast did identify osseous metastatic disease right frontal calvarium. These results were reviewed in detail with the patient and the treatment remains exactly the same for other bony metastases. In regards to the patient's concern of increased risk of fracture with Xgeva I discussed with the patient yes in fact this medication does carry an increased risk of fracture in large bone such as femur however this is a very low risk compared with a rather increased risk of pathologic fracture due to bony metastases. The benefit of this medication by far outweighs the risk of this medication therefore recommendation is to continue to prevent further bone loss in improved bone density while also decreasing her risk of pathologic fracture due to bony metastases. I also explained to the pt she will be on this medication half-way, most likely. Pt is requesting to have her Vit D level checked . White count has dropped a bit most likely due to Ibrance. White count is 3.9 ANC 1400. Patient is without fever, chills. No evidence of acute bacterial or viral process. Continue Ibrance 125mg QD RTC in 1 week for cbc. Pt verbalizes understanding. Pt had multiple questions dating back weeks and months. She wished to discuss information previously discussed with her oncologist Dr Ceballos. She has been reaching out to other providers also internet sites. I feel it is in this pts best interest to have only 1 provider, her oncologist Dr Ceballos to manage her care. I am happy to see her for any acute/urgent visits. I agree with the patients diagnosis and treatment plan as laid out by Dr Ceballos. Plan: 1. Continue Goserolin 3.6 mg monthly most recent injection was #3 on 06/21/2018. Next injection 07/22/2018 pt requesting to have injection today which will be #4. Repeat again in one month. 2. Continue Letrazole 2.5 mg daily, started 06/01/2018 3. Palbciclib 125 mg daily on days 1-21 every 28 days, started 06/28/2018. Pt is currently on day C1 D22. 4. Cont Xgeva 120 mg subQ monthly most recent injection was 07/05/2018 and continue every month. 5. Noting low white count most likely due to Ibrance white count 3.9 ANC 1400 no changes indicated at this time no fever, chills. Continue Ibrance 125 mg return to clinic in 1 weeks time for nurse visit, BRADLEY. Return to clinic in 2 weeks time for visit with Dr. Ceballos, CBC, CMP. 5. RTC in 2 weeks, BRADLEY, CMP. (2) Pain of multiple sites Problem details: Likely related to extensive bone metastasis. Assessment: The patient has extensive whole body pain affecting the cervical, upper chest, upper back and lower back as well as the lower extremities. During her previous visit, Dr Ceballos explained about the policy of narcotic use in cancer patients. Patient states she does feel as though her pain has improved since initiating treatment. However, she is requesting a refill of her long-acting morphine as well as hydrocodone 5/325 for breakthrough pain. I will refill these. Continue daily diclofenac. Also per patient request I have written an order for physical therapy, occupational therapy patient requesting evaluation for back brace. I discussed with the pt I do expect her pain to continue to improve with ongoing treatment. In a period of time perhaps about 3 months or so we will repeat imaging to further evaluate response to treatment. Plan: 1. Continue Morphine ER 30 mg q12h, 30# written 2. Continue Hydrocodone 5/325 x 30#, 1-3# qd prn pain 3. Continue Diclofenac. - Time Spent with Patient 35 mins face to face with pt 5 mins prior review of records labs imaging 10 mins after appt in dictation, coordination of care with RN, pharmacist, and embossing press operator molded goods.
--- NOTE | 2018-07-19 15:24 | P.PNONC_ITS ---
PN -Subjective Interval history: This is a 52-year-old female with newly diagnosed ER positive [place] positive HER2 negative metastatic right breast cancer with involvement of bilateral lungs, bilateral pleural effusion, widespread osseous metastasis, mediastinum lymph nodes involvement. Patient currently is taking goserelin started on 05/24/2018 , and letrozole started 06/01/2018. And she started taking palbociclib 125 mg daily on 06/28/2018. Patient overall tolerated well. Since initiating this treatment patient reports improved range of motion also some improvement in her back pain. Additionally, previously palpable ?mass? on her cervical spine per patient report has gotten smaller. Patient reported mild nausea. No vomiting. Also reports fatigue. She states she has difficulty cleaning her house also difficulty taking a bath. Patient also complains of significant hot flashes, sweating, and alternating hot and cold. The patient currently is also taking MS Contin 30 mg every 12 hr and hydrocodone 5/325, 1#-3# tablets per day for breakthrough pain in addition to use the diclofenac. Also taking diclofenac which pt reports has been very effective in controlling her back pain. Pt presents with a family friend today. She has multiple questions with concerns dating back months and months. She is also concerned about the side effects of Xgeva stating I dont know why I am getting it if there is a increased risk of fracture with it. Pt underwent brain MRI with and without contrast July 14, 2018 which did identify enhancing lesions involving the right frontal calvaruim consistent with osseous metastatic disease. There were no acute intracranial disease process noted. No abnormal or intracranial mass or suspicious intracranial post contrast involvement. These results were reviewed in detail with the pt and her family friend. Pt denies any acute changes on exam today. She reports ongoing neck, back and hip pain however reports it seems to be getting better. Patient denies fever , chills. No diarrhea, constipation. No nausea, abdominal pain. No skin changes to report. No shortness of breath. She does continue to complain of bad fatigue. No new pain, no new lumps or bumps. - Patient Self-Reported Symptoms SR Constitution: Chills, Fatigue/Malaise, Night Sweats SR eye issues: Double vision, Eye pain SR ears, nose, mouth, throat issues: Bleeding gums, Hoarseness, Swollen glands SR respiratory issues: Shortness of breath SR Cardiovascular issues: Chest pain, discomfort, tightness, Shortness of breath with activity or lying flat, Dizzy/lightheaded SR Skin issues: Dry skin, Hair loss or scalp prob SR Gastrointestinal issues: Change in bowel pattern, Diarrhea, Blood in stool SR Genitourinary issues: Frequent urination, Change in stream, Incontinence, Vaginal bleeding SR Musculoskeletal issues: Joint pain or swelling, Muscle weakness, Back or neck pain, Cold hands or feet, Difficulty walking, Bone pain SR Neuro issues: Headache, Lightheaded/dizzy, Difficulty balancing SR Hematologic issues: Slow healing, Swollen lymph nodes SR Endocrine issues: Cold intolerance, Excessive urination Home Medications and Allergies Home Medications Medication Instructions Recorded Confirmed Type diclofenac potassium 50 mg PO DAILY PRN 05/24/18 05/24/18 History goserelin 3.6 mg SUBCUT Q28D #10 ea 05/24/18 Rx letrozole [Femara] 2.5 mg PO DAILY #90 tab 05/24/18 Rx palbociclib [Ibrance] 125 mg PO DAILY #21 cap 05/24/18 Rx lorazepam 1 mg PO BID-TID PRN 06/01/18 06/01/18 History amitriptyline 25 mg PO DAILY 06/07/18 06/07/18 History mirtazapine 06/07/18 History palbociclib [Ibrance] 125 mg PO DAILY #21 cap 06/07/18 06/21/18 Rx ondansetron 8 mg PO Q6HR PRN #30 tab 06/15/18 Rx sennosides [senna] 8.6 mg PO BID 06/21/18 06/21/18 History hydrocodone-acetaminophen 1 tab PO Q4H PRN #30 tab 07/19/18 Rx morphine 30 mg PO Q12H #28 tab 07/19/18 Rx Allergies Allergy/AdvReac Type Severity Reaction Status Date / Time clindamycin Allergy Unknown Verified 05/24/18 09:54 levofloxacin [From Levaquin] Allergy Verified 05/24/18 09:53 Penicillins Allergy Verified 05/24/18 09:54 Exam - Constitutional positive no acute distress - Routine HEENT Exam Eye: Present: conjunctivae pink. Absent: conjunctival icterus, scleral injection ENT: Present: mucous membranes moist, oropharynx clear - Routine Neck Exam Present: supple. Absent: lymphadenopathy - Routine Respiratory Exam Present: Clear to auscultation bilaterally. Absent: rales, rhonchi, wheezes - Routine Cardiovascular Exam Present: RRR, S1, S2. Absent: murmur, gallop, rubs, JVD - Routine Abdominal Exam Present: soft, normoactive bowel sounds. Absent: tenderness, distended, organomegaly - Routine Extremities Exam Absent: edema, calf tenderness - Routine Skin Exam Present: intact, normal turgor. Absent: petechiae, rash - Routine Neurological Exam Present: alert, oriented X3 - Routine Psychiatric Exam Absent: suicidal ideation, depressed Results - Labs Laboratory Last Values WBC 3.9 X10^3/uL (4.5-11.0) L 07/19/18 13:52 RBC 3.69 X10^6/uL (4.0-5.2) L 07/19/18 13:52 Hgb 11.7 g/dL (12.0-16.0) L 07/19/18 13:52 Hct 34.3 % (36-46) L 07/19/18 13:52 MCV 92.9 fL (80-100) 07/19/18 13:52 MCH 31.6 PG (26-34) 07/19/18 13:52 MCHC 34.0 % (30-36) 07/19/18 13:52 RDW 15.0 % (11.6-14.8) H 07/19/18 13:52 Plt Count 325 X10^3/uL (150-400) 07/19/18 13:52 Neut % (Auto) 36.4 % (50-75) L 07/19/18 13:52 Lymph % (Auto) 49.9 % (25-40) H 07/19/18 13:52 [place] % (Auto) 11.5 % (3-14) 07/19/18 13:52 Eos % (Auto) 1.6 % (2-4) L 07/19/18 13:52 Baso % (Auto) 0.6 % (0-2) 07/19/18 13:52 Neut # (Auto) 1400 /uL (6107-6286) L 07/19/18 13:52 Sodium 138 mmol/L (137-145) 07/19/18 13:52 Potassium 4.4 mmol/L (3.4-5.1) 07/19/18 13:52 Chloride 105 mmol/L (98-107) 07/19/18 13:52 Carbon Dioxide 24 mmol/L (22-32) 07/19/18 13:52 BUN 17 mg/dL (7-17) 07/19/18 13:52 Creatinine 0.70 mg/dL (0.52-1.04) 07/19/18 13:52 Estimated GFR > 60.0 mL/min (>60) 07/19/18 13:52 BUN/Creatinine Ratio 24.3 (6-22) H 07/19/18 13:52 Glucose 105 mg/dL (70-100) H 07/19/18 13:52 Calcium 9.1 mg/dL (8.4-10.2) 07/19/18 13:52 Total Bilirubin 0.2 mg/dL (0.2-1.3) 07/19/18 13:52 AST 32 IU/L (14-36) 07/19/18 13:52 ALT 49 IU/L (9-52) 07/19/18 13:52 Alkaline Phosphatase 180 U/L (38-126) H 07/19/18 13:52 Total Protein 7.5 g/dL (6.3-8.2) 07/19/18 13:52 Albumin 4.4 g/dL (3.5-5.0) 07/19/18 13:52 Globulin 3.1 g/dL (1.7-4.1) 07/19/18 13:52 Albumin/Globulin Ratio 1.4 (1.0-2.8) 07/19/18 13:52 Assessment and Plan (1) Primary cancer of right breast with metastasis to other site Problem details: Metastatic right breast IDC, mod differentiated, ER positive (3 +, 70% of cells), [place] positive (2 to 3+, 30% of cells), Ki 67 intermediate (10% of cells) and HER2 negative (0+, 0% of cells). Metastatic sites include multifocal osseous metastatic disease (bone scan and CT scan), axillary lymphadenopathy, pulmonary nodules with lymphangitic carcinomatosis, bilateral pleural effusions, mediastinal lymph nodes. Assessment: Patient has ER positive [place] positive HER2 negative metastatic breast cancer. The Backbone of the treatment for hormone receptor positive metastatic breast cancer is endocrine therapy. Patient reports since initiating treatment she is feeling better specifically with less pain also palpable mass in her cervical spine has gotten smaller. Brain MRI with and without contrast did identify osseous metastatic disease right frontal calvarium. These results were reviewed in detail with the patient and the treatment remains exactly the same for other bony metastases. In regards to the patient's concern of increased risk of fracture with Xgeva I discussed with the patient yes in fact this medication does carry an increased risk of fracture in large bone such as femur however this is a very low risk compared with a rather increased risk of pathologic fracture due to bony metastases. The benefit of this medication by far outweighs the risk of this medication therefore recommendation is to continue to prevent further bone loss in improved bone density while also decreasing her risk of pathologic fracture due to bony metastases. I also explained to the pt she will be on this medication engagement liaison, most likely. Pt is requesting to have her Vit D level checked . White count has dropped a bit most likely due to Ibrance. White count is 3.9 ANC 1400. Patient is without fever, chills. No evidence of acute bacterial or viral process. Continue Ibrance 125mg QD RTC in 1 week for cbc. Pt verbalizes understanding. Pt had multiple questions dating back weeks and months. She wished to discuss information previously discussed with her oncologist Dr Ceballos. She has been reaching out to other providers also internet sites. I feel it is in this pts best interest to have only 1 provider, her oncologist Dr Ceballos to manage her care. I am happy to see her for any acute/urgent visits. I agree with the patients diagnosis and treatment plan as laid out by Dr Ceballos. Plan: 1. Continue Goserolin 3.6 mg monthly most recent injection was #3 on 06/21/2018. Next injection 07/22/2018 pt requesting to have injection today which will be #4. Repeat again in one month. 2. Continue Letrazole 2.5 mg daily, started 06/01/2018 3. Palbciclib 125 mg daily on days 1-21 every 28 days, started 06/28/2018. Pt is currently on day C1 D22. 4. Cont Xgeva 120 mg subQ monthly most recent injection was 07/05/2018 and continue every month. 5. Noting low white count most likely due to Ibrance white count 3.9 ANC 1400 no changes indicated at this time no fever, chills. Continue Ibrance 125 mg return to clinic in 1 weeks time for nurse visit, BRADLEY. Return to clinic in 2 weeks time for visit with Dr. Ceballos, CBC, CMP. 5. RTC in 2 weeks, BRADLEY, CMP. (2) Pain of multiple sites Problem details: Likely related to extensive bone metastasis. Assessment: The patient has extensive whole body pain affecting the cervical, upper chest, upper back and lower back as well as the lower extremities. During her previous visit, Dr Ceballos explained about the policy of narcotic use in cancer patients. Patient states she does feel as though her pain has improved since initiating treatment. However, she is requesting a refill of her long- acting morphine as well as hydrocodone 5/325 for breakthrough pain. I will refill these. Continue daily diclofenac. Also per patient request I have written an order for physical therapy, occupational therapy patient requesting evaluation for back brace. I discussed with the pt I do expect her pain to continue to improve with ongoing treatment. In a period of time perhaps about 3 months or so we will repeat imaging to further evaluate response to treatment. Plan: 1. Continue Morphine ER 30 mg q12h, 30# written 2. Continue Hydrocodone 5/325 x 30#, 1-3# qd prn pain 3. Continue Diclofenac. - Time Spent with Patient 35 mins face to face with pt 5 mins prior review of records labs imaging 10 mins after appt in dictation, coordination of care with RN, pharmacist, and supervisor dehydrogenation.
[2018-07-19] MEDS: GOSERELIN 3.6 MG SUBCUT (16:02)
--- NOTE | 2018-07-21 13:29 | ONC.NAV ---
Addendum entered and electronically signed by SHANAE Ramos 07/21/18 13:34: *Sent patient a check in the mail to reimburse her from the [facility] for fuel costs to treatment. Original Note: Description: T/C re: forearm crutches request Activity: Pt had indicated at her last visit here in the clinic that she wanted follow-through on ordering her a pair of forearm crutches. This CORPORATE ASSOCIATE ATTORNEY called [email or web address] in [place] and determined the type and hunt for her to order. Called pt back to explain how to order and pick-up the crutches, she stated I don't really need those, I just thought at the time that they would be a good idea. CORPORATE ASSOCIATE ATTORNEY explained that usually, a patient need's to have a physical exam by an MD or physical therapist to decide the most appropriate type of DME for her medical needs. CORPORATE ASSOCIATE ATTORNEY encouraged her to talk to her physical therapist or PCP should she decide she need's any further supportive medical equipment for mobility purposes.
--- NOTE | 2018-07-26 10:49 | ONC.SCHED ---
Patient called and stated that she didn't feel well and wanted to reschedule her appointment. She asked that i double check with nursing to see if that was ok. I asked Thea and she said that would be fine. This also included the fact that Domi was going to start her next round of Ibrance and Thea said it was fine to take that today and check labs tomorrow.
--- NOTE | 2018-07-29 16:12 | PC.NURSE ---
Addendum entered by Mari Diaz R.N. 07/30/18 11:34: Per Dr Ceballos, Ok for pt to snowboarder forward with Vitamin D 50,000 Original Note: Pt called to report a Vit D level of 17. Her PCP would like her to start on Vit D 50,000 daily. She wants to know if you are ok with this because of her bone mets.
--- NOTE | 2018-08-02 08:51 | P.PNONC_ITS ---
PN -Subjective Interval history: This is a 52-year-old female with ER positive WV positive HER2 negative metastatic right breast cancer with involvement of bilateral lungs, bilateral pleural effusion, mediastinum lymph nodes involvement and widespread osseous metastasis. She was started on goserelin 3.6mg every 28 days on 05/24/2018, and letrozole 2.5 mg daily on 06/01/2018. She started taking palbociclib 125 mg daily on 06/28/2018. She started denosumab 120 mg subQ monthly on 07/05/2018. She is also taking MS Contin 30 mg every 12 hr and hydrocodone 5/325, 1#-3# tablets per day and diclofenac for controlling her back pain. Pt underwent brain MRI with and without contrast July 14, 2018 which did identify enhancing lesions involving the right frontal calvaruim consistent with osseous metastatic disease. There were no acute intracranial disease process noted. No abnormal or intracranial mass or suspicious intracranial post contrast involvement. These results were reviewed in detail with the pt and her family friend. Today, she is here for scheduled follow up. She came in with her friend. She is complaining of painful bowel movement and blood in the stool, multiple times. She reports low energy level and is fatigue all the time. She is trying to do things at home as much as she can. She is having short term memory problems. Her back is hurting. She is now on cycle 2 day 8 Ibrance. She is taking ondansetron at the same time. Good appetite. Weight stable. - Patient Self-Reported Symptoms SR Constitution: Chills, Fatigue/Malaise, Night Sweats SR eye issues: Double vision, Eye pain SR ears, nose, mouth, throat issues: Bleeding gums, Hoarseness, Swollen glands SR respiratory issues: Shortness of breath SR Cardiovascular issues: Chest pain, discomfort, tightness, Shortness of breath with activity or lying flat, Dizzy/lightheaded SR Skin issues: Dry skin, Hair loss or scalp prob SR Gastrointestinal issues: Change in bowel pattern, Diarrhea, Blood in stool SR Genitourinary issues: Frequent urination, Change in stream, Incontinence, Vaginal bleeding SR Musculoskeletal issues: Joint pain or swelling, Muscle weakness, Back or neck pain, Cold hands or feet, Difficulty walking, Bone pain SR Neuro issues: Headache, Lightheaded/dizzy, Difficulty balancing SR Hematologic issues: Slow healing, Swollen lymph nodes SR Endocrine issues: Cold intolerance, Excessive urination - Additional ROS All systems PM: reviewed and no additional remarkable complaints except as stated Home Medications and Allergies Home Medications Medication Instructions Recorded Confirmed Type diclofenac potassium 1 - 2 tab PO DAILY PRN 05/24/18 08/02/18 History goserelin 3.6 mg SUBCUT Q28D #10 ea 05/24/18 08/02/18 Rx palbociclib [Ibrance] 125 mg PO DAILY #21 cap 06/07/18 08/02/18 Rx ondansetron 8 mg PO Q6HR PRN #30 tab 06/15/18 08/02/18 Rx sennosides [senna] 8.6 mg PO BID 06/21/18 08/02/18 History hydrocodone-acetaminophen 1 tab PO Q4H PRN #30 tab 08/02/18 Rx letrozole [Femara] 2.5 mg PO DAILY #90 tab 08/02/18 Rx morphine 30 mg PO Q12H #28 tab 08/02/18 Rx oxybutynin chloride 5 mg PO BID #60 tab 08/02/18 Rx Allergies Allergy/AdvReac Type Severity Reaction Status Date / Time clindamycin Allergy Unknown Verified 05/24/18 09:54 levofloxacin [From Levaquin] Allergy Verified 05/24/18 09:53 Penicillins Allergy Verified 05/24/18 09:54 Exam Vital signs: Last Vital Signs Temp 98.1 F 08/02/18 11:18 Pulse 73 08/02/18 11:18 Resp 20 08/02/18 11:18 BP 108/61 08/02/18 11:18 Pulse Ox 99 08/02/18 11:18 ECOG 1 Narrative: Constitutional: well developed, obese, NAD, well groomed, cooperative, anxious HEENT: Normocephalic atraumatic. Extraocular muscle movement intact. Pupils are round, equal and reactive to light and accommodations. Anicteric sclera. No hearing difficulty; Oral mucus membrane moist and without ulcers. Neck: Supple, symmetrical, and tracheal midline; No palpable thyromegaly and no palpable lymph nodes. There is No mass palpable underneath the skin on the back of the neck. Respiratory: No use of accessory muscles. Clear to auscultation, and no wheezes or rales or rubs. Cardiovascular: Regular rate and rhythm, S1 and S2 normal, no murmurs gallops or rubs. No JVD. No pitting edema of lower extremities. Abdomen: Soft, nontender, non-distended, bowel sounds normal, no palpable organomegaly, no hernia, no palpable masses. Lower extremities: No palpable pedal edema. Lymphatic: no palpable lymph nodes in the neck, axillae, or groins. Skin: no rashes, no ulcers, no petechiae Neurological: Awake and alert and oriented x3. CN II-XII grossly intact. No focal motor or sensory deficit. Psychiatric: Good judgment, good insight, normal affect, normal thought process , cooperative, no depression, no anxiety. Breast exams: Deferred. Results - Labs Laboratory Last Values WBC 5.0 X10^3/uL (4.5-11.0) 08/02/18 10:30 RBC 3.86 X10^6/uL (4.0-5.2) L 08/02/18 10:30 Hgb 12.1 g/dL (12.0-16.0) 08/02/18 10:30 Hct 36.7 % (36-46) 08/02/18 10:30 MCV 95.1 fL (80-100) 08/02/18 10:30 MCH 31.4 PG (26-34) 08/02/18 10:30 MCHC 33.1 % (30-36) 08/02/18 10:30 RDW 17.1 % (11.6-14.8) H 08/02/18 10:30 Plt Count 427 X10^3/uL (150-400) H 08/02/18 10:30 Neut % (Auto) 50.2 % (50-75) 08/02/18 10:30 Lymph % (Auto) 39.9 % (25-40) 08/02/18 10:30 [place] % (Auto) 7.3 % (3-14) 08/02/18 10:30 Eos % (Auto) 1.1 % (2-4) L 08/02/18 10:30 Baso % (Auto) 1.5 % (0-2) 08/02/18 10:30 Neut # (Auto) 2500 /uL (4146-1274) 08/02/18 10:30 Lymph # (Auto) 2000 /uL (4955-3215) 08/02/18 10:30 [place] # (Auto) 400 /uL (0-900) 08/02/18 10:30 Eos # (Auto) 100 /uL (0-450) 08/02/18 10:30 Baso # (Auto) 100 /uL (0-100) 08/02/18 10:30 Sodium 138 mmol/L (137-145) 08/02/18 10:30 Potassium 4.3 mmol/L (3.4-5.1) 08/02/18 10:30 Chloride 105 mmol/L (98-107) 08/02/18 10:30 Carbon Dioxide 23 mmol/L (22-32) 08/02/18 10:30 BUN 13 mg/dL (7-17) 08/02/18 10:30 Creatinine 0.70 mg/dL (0.52-1.04) 08/02/18 10:30 Estimated GFR > 60.0 mL/min (>60) 08/02/18 10:30 BUN/Creatinine Ratio 18.6 (6-22) 08/02/18 10:30 Glucose 99 mg/dL (70-100) 08/02/18 10:30 Calcium 8.4 mg/dL (8.4-10.2) 08/02/18 10:30 Total Bilirubin 0.2 mg/dL (0.2-1.3) 08/02/18 10:30 AST 21 IU/L (14-36) 08/02/18 10:30 ALT 33 IU/L (9-52) 08/02/18 10:30 Alkaline Phosphatase 123 U/L (38-126) 08/02/18 10:30 Total Protein 7.3 g/dL (6.3-8.2) 08/02/18 10:30 Albumin 4.2 g/dL (3.5-5.0) 08/02/18 10:30 Globulin 3.1 g/dL (1.7-4.1) 08/02/18 10:30 Albumin/Globulin Ratio 1.4 (1.0-2.8) 08/02/18 10:30 Assessment and Plan (1) Primary cancer of right breast with metastasis to other site Problem details: Metastatic right breast IDC, mod differentiated, ER positive (3 +, 70% of cells), WV positive (2 to 3+, 30% of cells), Ki 67 intermediate (10% of cells) and HER2 negative (0+, 0% of cells). Metastatic sites include multifocal osseous metastatic disease (bone scan and CT scan), axillary lymphadenopathy, pulmonary nodules with lymphangitic carcinomatosis, bilateral pleural effusions, mediastinal lymph nodes. Assessment: She is currently on treatment with goserelin/letrozole/palbociclib. Overall patient has tolerated well except many nonspecific symptoms, especially hot flashes with chills, fatigue, and back pain. She denies any fever. I reviewed the laboratory tests with the patient. As for her hot flashes, I reviewed the most recent publication regarding the role of oxybutynin in relieving hot flashes. Patient voiced understanding and would like to try. Patient also would like to discuss more issues in the near future. I told her that after 2 cycles, I will consider repeat CT CAP. Plan: 1. Continue Goserolin 3.6 mg monthly Next due 08/16/2018 2. Continue Letrazole 2.5 mg daily 3. Continue Palbciclib 125 mg daily on days 1-21 every 28 days Pt is currently on day C2D8 4. Cont Xgeva 120 mg subQ monthly Ok to proceed injection today. 5. Oxybutinin 5 mg bid, 60# for hot flashes. 6. RTC in 1 week, CBC, CMP. (2) Pain of multiple sites Problem details: Likely related to extensive bone metastasis. Assessment: The patient has extensive whole body pain affecting the cervical, upper chest, upper back and lower back as well as the lower extremities. Patient said that the pain medication have been working excellent in terms of pain control. Will continue without any changes. Plan: 1. Continue Morphine ER 30 mg 1# q12h, 30# refilled today 2. Continue Hydrocodone 5/325, 1-3# qd prn pain, 30# refilled today 3. Continue Diclofenac 50 mg, 1-2# daily prn
[2018-08-02 10:41] LABS: Add Manual Diff / Slide Review NO; Basophils Absolute Auto 100 /uL (0-100); Basophils Percent Auto 1.5 % (0-2); Eosinophils Absolute Auto 100 /uL (0-450); Eosinophils Percent Auto 1.1 % (2-4); Hematocrit 36.7 % (36-46); Hemoglobin 12.1 g/dL (12.0-16.0); Lymphocytes Absolute Auto 2000 /uL (1100-4500); Lymphocytes Percent Auto 39.9 % (25-40); Mean Corpuscular HGB Conc 33.1 % (30-36); Mean Corpuscular Hemoglobin 31.4 PG (26-34); Mean Corpuscular Volume 95.1 fL (80-100); Monocytes Absolute Auto 400 /uL (0-900); Monocytes Percent Auto 7.3 % (3-14); Neutrophils Absolute Auto 2500 /uL (1500-7000); Neutrophils Percent Auto 50.2 % (50-75); Platelet Count 427 X10^3/uL (150-400); Red Blood Cell Count 3.86 X10^6/uL (4.0-5.2); Red Cell Distribution Width 17.1 % (11.6-14.8)
[2018-08-02 10:57] LABS: Alanine Aminotransferase 33 IU/L (9-52); Albumin 4.2 g/dL (3.5-5.0); Albumin Globulin Ratio 1.4 (1.0-2.8); Alkaline Phosphatase 123 U/L (38-126); Aspartate Aminotransferase 21 IU/L (14-36); BUN Creatinine Ratio 18.6 (6-22); Bilirubin Total 0.2 mg/dL (0.2-1.3); Blood Urea Nitrogen 13 mg/dL (7-17); Calcium 8.4 mg/dL (8.4-10.2); Carbon Dioxide 23 mmol/L (22-32); Chloride 105 mmol/L (98-107); Estimated Glomerular Filt Rate > 60.0 mL/min (>60); Globulin 3.1 g/dL (1.7-4.1); Glucose 99 mg/dL (70-100); HEMOLYSIS < 15 (0-50); Potassium 4.3 mmol/L (3.4-5.1); Sodium 138 mmol/L (137-145); Total Protein 7.3 g/dL (6.3-8.2)
[2018-08-02 11:18] VITALS: BP 108/61; PULSE 73; RESP 20; TEMP 36.7; O2SAT 99
[2018-08-02] MEDS: DENOSUMAB 120 MG/1.7 ML VIAL SUBCUT (12:26)
--- NOTE | 2018-08-03 11:57 | PC.NURSE ---
Pt called yesterday afternoon to say that she has been experiencing hot flashes and talked to Dr Ceballos at her appt today about calling in a medication to help her with this side effect. Per pt, Dr Ceballos was supposed to call in Venlafaxine but her called in oxybutynin. Note placed on Dr Ceballos's desk asking for him to change it to venlafaxine as pt would like that, however note returned to triage with no indication or input from about what he thought was the best course of action. Dictated note states he would like pt to try oxybutynin for hot flashes (based on a recent article he read). Left pt a message to request that she try the oxybutynin and if that's not effective, perhaps Dr Ceballos would switch it at that time.
[2018-08-09 13:30] LABS: Add Manual Diff / Slide Review NO; Basophils Absolute Auto 0 /uL (0-100); Basophils Percent Auto 0.9 % (0-2); Eosinophils Absolute Auto 100 /uL (0-450); Eosinophils Percent Auto 2.2 % (2-4); Hematocrit 35.2 % (36-46); Lymphocytes Absolute Auto 1700 /uL (1100-4500); Lymphocytes Percent Auto 46.9 % (25-40); Mean Corpuscular Hemoglobin 32.1 PG (26-34); Mean Corpuscular Volume 94.2 fL (80-100); Monocytes Absolute Auto 300 /uL (0-900); Monocytes Percent Auto 8.3 % (3-14); Neutrophils Absolute Auto 1500 /uL (1500-7000); Neutrophils Percent Auto 41.7 % (50-75); Platelet Count 424 X10^3/uL (150-400); Red Blood Cell Count 3.73 X10^6/uL (4.0-5.2); Red Cell Distribution Width 17.7 % (11.6-14.8); White Blood Cell Count 3.7 X10^3/uL (4.5-11.0)
[2018-08-09 13:43] LABS: Alanine Aminotransferase 29 IU/L (9-52); Albumin 4.2 g/dL (3.5-5.0); Albumin Globulin Ratio 1.4 (1.0-2.8); Alkaline Phosphatase 97 U/L (38-126); Aspartate Aminotransferase 19 IU/L (14-36); BUN Creatinine Ratio 12.9 (6-22); Bilirubin Total 0.2 mg/dL (0.2-1.3); Blood Urea Nitrogen 9 mg/dL (7-17); Calcium 8.5 mg/dL (8.4-10.2); Carbon Dioxide 22 mmol/L (22-32); Chloride 108 mmol/L (98-107); Estimated Glomerular Filt Rate > 60.0 mL/min (>60); Globulin 2.9 g/dL (1.7-4.1); Glucose 89 mg/dL (70-100); HEMOLYSIS < 15 (0-50); Potassium 4.3 mmol/L (3.4-5.1); Sodium 139 mmol/L (137-145); Total Protein 7.1 g/dL (6.3-8.2)
[2018-08-09 14:00] VITALS: BP 96/72; PULSE 68; RESP 20; TEMP 37.2; O2SAT 98
--- NOTE | 2018-08-09 14:00 | ONC.PN ---
PN -Subjective Interval history: This is a 52-year-old female with ER positive NV positive HER2 negative metastatic right breast cancer with involvement of bilateral lungs, bilateral pleural effusion, mediastinum lymph nodes involvement and widespread osseous metastasis. She was started on goserelin 3.6mg every 28 days on 05/24/2018, and letrozole 2.5 mg daily on 06/01/2018. She started taking palbociclib 125 mg daily on 06/28/2018. She started denosumab 120 mg subQ monthly on 07/05/2018. She is also taking MS Contin 30 mg every 12 hr and hydrocodone 5/325, 1#-3# tablets per day and diclofenac for controlling her back pain. Pt underwent brain MRI with and without contrast July 14, 2018 which did identify enhancing lesions involving the right frontal calvaruim consistent with osseous metastatic disease. There were no acute intracranial disease process noted. No abnormal or intracranial mass or suspicious intracranial post contrast involvement. These results were reviewed in detail with the pt and her family friend. Today, she is here for scheduled follow up. Today is C2D15 for her Ibrance. Once again she is accompanied by her friend. During her previous visit with me on 08/02/2018, she was complaining significant hot flashes and night sweats. Therefore we started oxybutynin 5 mg twice daily. She reported that her hot flashes are significantly better. However she is complaining worsening acid reflux. She is taking acid medications. She is also worried about possible sinus infection because of the some secretions. No fever and no chills. No shortness of breath no chest pain. Overall per patient's friend, she is doing a lot better than before. She is able to do home work all day long without any difficulties. - Patient Self-Reported Symptoms SR Constitution: Chills, Fatigue/Malaise, Night Sweats SR eye issues: Eye pain SR ears, nose, mouth, throat issues: Ears ringing, Congestion, Cough, Difficulty swallowing, Bleeding gums, Changes in taste, Hoarseness SR respiratory issues: Cough, Shortness of breath SR Cardiovascular issues: Chest pain, discomfort, tightness, Shortness of breath with activity or lying flat, Dizzy/lightheaded SR Skin issues: Dry skin, Skin rash or itching, Blistering or peeling, Hair loss or scalp prob, Nail changes SR Gastrointestinal issues: Change in bowel pattern, Constipation, Blood in stool, Abdominal pain SR Genitourinary issues: Frequent urination, Change in stream, Incontinence SR Musculoskeletal issues: Joint pain or swelling, Muscle weakness SR Neuro issues: Headache, Lightheaded/dizzy, Numbness or tingling, Difficulty balancing SR Hematologic issues: Slow healing SR Endocrine issues: Cold intolerance, Heat intolerance - Additional ROS All systems PM: reviewed and no additional remarkable complaints except as stated Home Medications and Allergies Home Medications Medication Instructions Recorded Confirmed Type diclofenac potassium 1 - 2 tab PO DAILY PRN 05/24/18 08/09/18 History goserelin 3.6 mg SUBCUT Q28D #10 ea 05/24/18 08/09/18 Rx palbociclib [Ibrance] 125 mg PO DAILY #21 cap 06/07/18 08/09/18 Rx ondansetron 8 mg PO Q6HR PRN #30 tab 06/15/18 08/09/18 Rx sennosides [senna] 8.6 mg PO BID 06/21/18 08/09/18 History hydrocodone-acetaminophen 1 tab PO Q4H PRN #30 tab 08/02/18 08/09/18 Rx letrozole [Femara] 2.5 mg PO DAILY #90 tab 08/02/18 08/09/18 Rx oxybutynin chloride 5 mg PO BID #60 tab 08/02/18 08/09/18 Rx morphine [Mandy] 50 mg PO Q24H #10 cap 08/09/18 Rx Allergies Allergy/AdvReac Type Severity Reaction Status Date / Time clindamycin Allergy Unknown Verified 05/24/18 09:54 levofloxacin [From Levaquin] Allergy Verified 05/24/18 09:53 Penicillins Allergy Verified 05/24/18 09:54 Exam Vital signs: Last Vital Signs Temp 99.0 F 08/09/18 14:00 Pulse 68 08/09/18 14:00 Resp 20 08/09/18 14:00 BP 96/72 08/09/18 14:00 Pulse Ox 98 08/09/18 14:00 ECOG 1 Narrative: Constitutional: well developed, obese, NAD, well groomed, cooperative, anxious HEENT: Normocephalic atraumatic. Extraocular muscle movement intact. Pupils are round, equal and reactive to light and accommodations. Anicteric sclera. No hearing difficulty; Oral mucus membrane moist and without ulcers. Neck: Supple, symmetrical, and tracheal midline; No palpable thyromegaly and no palpable lymph nodes. There is No mass palpable underneath the skin on the back of the neck. Respiratory: No use of accessory muscles. Clear to auscultation, and no wheezes or rales or rubs. Cardiovascular: Regular rate and rhythm, S1 and S2 normal, no murmurs gallops or rubs. No JVD. No pitting edema of lower extremities. Abdomen: Soft, nontender, non-distended, bowel sounds normal, no palpable organomegaly, no hernia, no palpable masses. Lower extremities: No palpable pedal edema. Lymphatic: no palpable lymph nodes in the neck, axillae, or groins. Skin: no rashes, no ulcers, no petechiae Neurological: Awake and alert and oriented x3. CN II-XII grossly intact. No focal motor or sensory deficit. Psychiatric: Good judgment, good insight, normal affect, normal thought process, cooperative, no depression, no anxiety. Breast exams: Deferred. Results - Labs Laboratory Last Values WBC 3.7 X10^3/uL (4.5-11.0) L 08/09/18 13:20 RBC 3.73 X10^6/uL (4.0-5.2) L 08/09/18 13:20 Hgb 12.0 g/dL (12.0-16.0) 08/09/18 13:20 Hct 35.2 % (36-46) L 08/09/18 13:20 MCV 94.2 fL (80-100) 08/09/18 13:20 MCH 32.1 PG (26-34) 08/09/18 13:20 MCHC 34.0 % (30-36) 08/09/18 13:20 RDW 17.7 % (11.6-14.8) H 08/09/18 13:20 Plt Count 424 X10^3/uL (150-400) H 08/09/18 13:20 Neut % (Auto) 41.7 % (50-75) L 08/09/18 13:20 Lymph % (Auto) 46.9 % (25-40) H 08/09/18 13:20 [place] % (Auto) 8.3 % (3-14) 08/09/18 13:20 Eos % (Auto) 2.2 % (2-4) 08/09/18 13:20 Baso % (Auto) 0.9 % (0-2) 08/09/18 13:20 Neut # (Auto) 1500 /uL (4180-2347) 08/09/18 13:20 Lymph # (Auto) 1700 /uL (7503-0459) 08/09/18 13:20 [place] # (Auto) 300 /uL (0-900) 08/09/18 13:20 Eos # (Auto) 100 /uL (0-450) 08/09/18 13:20 Baso # (Auto) 0 /uL (0-100) 08/09/18 13:20 Sodium 139 mmol/L (137-145) 08/09/18 13:20 Potassium 4.3 mmol/L (3.4-5.1) 08/09/18 13:20 Chloride 108 mmol/L (98-107) H 08/09/18 13:20 Carbon Dioxide 22 mmol/L (22-32) 08/09/18 13:20 BUN 9 mg/dL (7-17) 08/09/18 13:20 Creatinine 0.70 mg/dL (0.52-1.04) 08/09/18 13:20 Estimated GFR > 60.0 mL/min (>60) 08/09/18 13:20 BUN/Creatinine Ratio 12.9 (6-22) 08/09/18 13:20 Glucose 89 mg/dL (70-100) 08/09/18 13:20 Calcium 8.5 mg/dL (8.4-10.2) 08/09/18 13:20 Total Bilirubin 0.2 mg/dL (0.2-1.3) 08/09/18 13:20 AST 19 IU/L (14-36) 08/09/18 13:20 ALT 29 IU/L (9-52) 08/09/18 13:20 Alkaline Phosphatase 97 U/L (38-126) 08/09/18 13:20 Total Protein 7.1 g/dL (6.3-8.2) 08/09/18 13:20 Albumin 4.2 g/dL (3.5-5.0) 08/09/18 13:20 Globulin 2.9 g/dL (1.7-4.1) 08/09/18 13:20 Albumin/Globulin Ratio 1.4 (1.0-2.8) 08/09/18 13:20 Assessment and Plan (1) Primary cancer of right breast with metastasis to other site Problem details: Metastatic right breast IDC, mod differentiated, ER positive (3+, 70% of cells), NV positive (2 to 3+, 30% of cells), Ki 67 intermediate (10% of cells) and HER2 negative (0+, 0% of cells). Metastatic sites include multifocal osseous metastatic disease (bone scan and CT scan), axillary lymphadenopathy, pulmonary nodules with lymphangitic carcinomatosis, bilateral pleural effusions, mediastinal lymph nodes. Assessment: She is currently on treatment with goserelin/letrozole/palbociclib. I am planning to repeat CT CAP after 2 cycles of Ibrance. Plan: 1. Continue Goserolin 3.6 mg monthly Next due 08/16/2018 2. Continue Letrazole 2.5 mg daily 3. Continue Palbciclib 125 mg daily on days 1-21 every 28 days Pt is currently on day C2D17 4. Cont Xgeva 120 mg subQ monthly Next injection 09/02/2018. 5. Cotinue Oxybutinin 5 mg bid for hot flashes. 6. RTC in 1 week, CBC, CMP. (2) Pain of multiple sites Problem details: Likely related to extensive bone metastasis. Assessment: The patient has extensive whole body pain affecting the cervical, upper chest, upper back and lower back as well as the lower extremities. Patient said that the pain medication have been working excellent in terms of pain control. She is using less pain medications than before, and is willing to taper. Plan: 1. Stop Morphine ER 30 mg 1# q12h 2. Morphine ER 50 mg x10#, once every 24 hours, 10# written 3. Continue Hydrocodone 5/325, 1-3# qd prn pain 4. Continue Diclofenac 50 mg, 1-2# daily prn
[2018-08-16 15:58] LABS: Add Manual Diff / Slide Review NO; Basophils Absolute Auto 0 /uL (0-100); Basophils Percent Auto 1.2 % (0-2); Eosinophils Absolute Auto 100 /uL (0-450); Eosinophils Percent Auto 1.9 % (2-4); Hematocrit 39.4 % (36-46); Lymphocytes Absolute Auto 1400 /uL (1100-4500); Lymphocytes Percent Auto 34.8 % (25-40); Mean Corpuscular HGB Conc 33.1 % (30-36); Mean Corpuscular Hemoglobin 31.9 PG (26-34); Mean Corpuscular Volume 96.4 fL (80-100); Monocytes Absolute Auto 500 /uL (0-900); Monocytes Percent Auto 11.6 % (3-14); Neutrophils Absolute Auto 2100 /uL (1500-7000); Neutrophils Percent Auto 50.5 % (50-75); Platelet Count 328 X10^3/uL (150-400); Red Blood Cell Count 4.09 X10^6/uL (4.0-5.2); Red Cell Distribution Width 17.6 % (11.6-14.8); White Blood Cell Count 4.1 X10^3/uL (4.5-11.0)
[2018-08-16 16:11] LABS: Alanine Aminotransferase 34 IU/L (9-52); Albumin 4.7 g/dL (3.5-5.0); Albumin Globulin Ratio 1.4 (1.0-2.8); Alkaline Phosphatase 105 U/L (38-126); Aspartate Aminotransferase 24 IU/L (14-36); Bilirubin Total 0.3 mg/dL (0.2-1.3); Blood Urea Nitrogen 14 mg/dL (7-17); Calcium 9.9 mg/dL (8.4-10.2); Carbon Dioxide 24 mmol/L (22-32); Chloride 106 mmol/L (98-107); Estimated Glomerular Filt Rate > 60.0 mL/min (>60); Globulin 3.3 g/dL (1.7-4.1); Glucose 102 mg/dL (70-100); HEMOLYSIS < 15 (0-50); Potassium 4.5 mmol/L (3.4-5.1); Sodium 140 mmol/L (137-145)
[2018-08-16] MEDS: GOSERELIN 3.6 MG SUBCUT (17:00)
--- NOTE | 2018-08-18 11:00 | PC.NURSE ---
Late note from 08/16/18 1700: pt called earlier in day to request a call back re: side effect to medication. Called pt back but went to voicemail so left a message. Pt spoke with Vi PROCEDURE RN patient navigator as well around 1:50 pm. She had a 2 pm appt and lives in [place] and per Vi, stated that she wouldn't be able to make it in to her 2 pm appt due to her c/o not feeling well. At approximately 3:30, pt presents to waiting room and per front program scheduler Pita, was demanding to be seen by Dr Ceballos urgently. Pt had an appt to see Dr Ceballos on 08/19. Appt at 2 pm was for labs and her Goserelin injection. When this RN talked to pt in [facility], she was visibly upset and wearing a mask. Informed her that seeing Dr Ceballos is not an option today and that if she felt like she needed to be evaluated urgently by a Dr, she needed to go to the ER. Pt states she doesn't know if her symptoms warrant a trip to the ER. Told patient that she could have her labs drawn and her injection and a hog worker/vitals. Any abnormal urgent findings would be reported to Dr Ceballos. Pt agreed to this. Vitals showed pt afebrile and all other vitals are normal. Labs show a fully functioning immune system as WBC and ANC are normal. Lungs clear upon auscultation. Pt has c/o what if I have pneumonia or a cold and I know I could from a cold cause my immune system isn't strong. Informed pt that her WBC and neutrophils are normal. Pt states she's been afebrile at home when she checks her temp but followed it up that my thermometer my be inaccurate though. Also c/o rash from oxybutynin, which she stopped. C/o inability to sleep due to hot flashes and then feeling cold. Spent an hour with the patient, assessing and reassuring her that nothing about her clinical picture suggests any urgent intervention, and reporting to Dr Ceballos her c/o and symptoms. He stated it was safe to go ahead with her goserelin injection. Pt objected to this because she expressed a desire to have the goserelin dosage lowered due to her side effects. Informed pt goserelin dosage would not be changed today as that would require Dr Ceballos to evaluate pt. Pt expressed reluctance to get the injection. Offered to give injection on however pt voiced concern that if she doesn't get the injection today, her cancer cells might start growing and asked if that would happen. Informed pt that would be near impossible to determine. Provided pt with a script for Ambien tablets and talked with her about managing her c/o cold symptoms, being nasal congestion and a dry cough. Throughout the course of assessing, pt brought up several non urgent questions that she felt needed to be answered right now. Kept informing her that those questions could be addressed at her appt with Dr Ceballos, as they require his input. After a series of questions, pt agreed to accept Goserelin injection. At the conclusion of time with pt, informed pt that she needs to get to her scheduled appt on time, as she usually requires a considerable amount of time to try to answer her questions and give her the help that she desires. Informed pt that all of us here want to help her, however she needs to respect our time constraints and also, she needs to show up on time to her appts. Pt states yah, but I just wasn't feeling well enough to make it her by 2 pm. Again, reminded pt that she either needs to show up on time or cancel her appt. Spoke with Vi the following morning and requested that she meet with pt on 08/19 when pt comes in to see Dr Ceballos, to reinforce her need to come to her appts on time and to inform her that if she is more than 15 minutes late to her appt, her appt will be canceled and rescheduled. Vi states she will plan to meet with pt on to discuss this.
--- NOTE | 2018-08-19 15:58 | ONC.PN ---
PN -Subjective Interval history: This is a 52-year-old female with ER positive MA positive HER2 negative metastatic right breast cancer with involvement of bilateral lungs, bilateral pleural effusion, mediastinum lymph nodes involvement and widespread osseous metastasis. She was started on goserelin 3.6mg every 28 days on 05/24/2018, and letrozole 2.5 mg daily on 06/01/2018. She started taking palbociclib 125 mg daily on 06/28/2018. She started denosumab 120 mg subQ monthly on 07/05/2018. She is also taking MS Contin 30 mg every 12 hr and hydrocodone 5/325, 1#-3# tablets per day and diclofenac for controlling her back pain. Pt underwent brain MRI with and without contrast July 14, 2018 which did identify enhancing lesions involving the right frontal calvaruim consistent with osseous metastatic disease. There were no acute intracranial disease process noted. No abnormal or intracranial mass or suspicious intracranial post contrast involvement. These results were reviewed in detail with the pt and her family friend. Today, she is here for scheduled follow up. She is accompanied by her friend. She is now in the 4th off-week of cycle 2. She is still complaining of lots of hot flashes. During her previous visit, I prescribed oxybutinin 5 mg bid based on a recent clinical trials for hot flashes. Patient admitted that oxybutinin was helpful to decrease the hot flashes, but her blood pressure dropped, and she felt uneasiness. Therefore, I have recommended that she stop oxybutinin. Thereafter, her Bp has returned to normal ranges. Today, she also mentioned that her right breast color changes, but she said right breast is less tense than before. In addition, a subcutanous nodule in the back of her neck has completely disappeared. - Patient Self-Reported Symptoms SR Constitution: Chills, Fatigue/Malaise, Night Sweats SR eye issues: Eye pain SR ears, nose, mouth, throat issues: Ears ringing, Congestion, Cough, Difficulty swallowing, Bleeding gums, Changes in taste, Hoarseness SR respiratory issues: Cough, Shortness of breath SR Cardiovascular issues: Chest pain, discomfort, tightness, Shortness of breath with activity or lying flat, Dizzy/lightheaded SR Skin issues: Dry skin, Skin rash or itching, Blistering or peeling, Hair loss or scalp prob, Nail changes SR Gastrointestinal issues: Change in bowel pattern, Constipation, Blood in stool, Abdominal pain SR Genitourinary issues: Frequent urination, Change in stream, Incontinence SR Musculoskeletal issues: Joint pain or swelling, Muscle weakness SR Neuro issues: Headache, Lightheaded/dizzy, Numbness or tingling, Difficulty balancing SR Hematologic issues: Slow healing SR Endocrine issues: Cold intolerance, Heat intolerance - Additional ROS All systems PM: reviewed and no additional remarkable complaints except as stated Home Medications and Allergies Home Medications Medication Instructions Recorded Confirmed Type diclofenac potassium 1 - 2 tab PO DAILY PRN 05/24/18 08/09/18 History goserelin 3.6 mg SUBCUT Q28D #10 ea 05/24/18 08/09/18 Rx palbociclib [Ibrance] 125 mg PO DAILY #21 cap 06/07/18 08/09/18 Rx ondansetron 8 mg PO Q6HR PRN #30 tab 06/15/18 08/09/18 Rx sennosides [senna] 8.6 mg PO BID 06/21/18 08/09/18 History hydrocodone-acetaminophen 1 tab PO Q4H PRN #30 tab 08/02/18 08/09/18 Rx letrozole [Femara] 2.5 mg PO DAILY #90 tab 08/02/18 08/09/18 Rx morphine [Mandy] 50 mg PO Q24H #10 cap 08/09/18 Rx zolpidem [Ambien] 10 mg PO BEDTIME PRN #7 tab 08/16/18 Rx Allergies Allergy/AdvReac Type Severity Reaction Status Date / Time clindamycin Allergy Unknown Verified 05/24/18 09:54 levofloxacin [From Levaquin] Allergy Verified 05/24/18 09:53 Penicillins Allergy Verified 05/24/18 09:54 Exam Vital signs: Last Vital Signs Temp 99.0 F 08/09/18 14:00 Pulse 68 08/09/18 14:00 Resp 20 08/09/18 14:00 BP 96/72 08/09/18 14:00 Pulse Ox 98 08/09/18 14:00 ECOG 1 Narrative: Constitutional: well developed, obese, NAD, well groomed, cooperative, anxious HEENT: Normocephalic atraumatic. Extraocular muscle movement intact. Pupils are round, equal and reactive to light and accommodations. Anicteric sclera. No hearing difficulty; Oral mucus membrane moist and without ulcers. Neck: Supple, symmetrical, and tracheal midline; No palpable thyromegaly and no palpable lymph nodes. There is No mass palpable underneath the skin on the back of the neck. Respiratory: No use of accessory muscles. Clear to auscultation, and no wheezes or rales or rubs. Cardiovascular: Regular rate and rhythm, S1 and S2 normal, no murmurs gallops or rubs. No JVD. No pitting edema of lower extremities. Abdomen: Soft, nontender, non-distended, bowel sounds normal, no palpable organomegaly, no hernia, no palpable masses. Lower extremities: No palpable pedal edema. Lymphatic: no palpable lymph nodes in the neck, axillae, or groins. Skin: no rashes, no ulcers, no petechiae Neurological: Awake and alert and oriented x3. CN II-XII grossly intact. No focal motor or sensory deficit. Psychiatric: Good judgment, good insight, normal affect, normal thought process, cooperative, no depression, no anxiety. Breast exams: The left breast is without nipple retraction, no palpable nodules or masses, and no palpable lymph nodes in the left axilla. The right breast showed mild peau d'orange skin changes with no erythema notable. The irregularly shaped large mass palpable underneath the nipple with very mild tenderness. I did not appreciate any enlarged lymph nodes in the right axilla. Results - Labs Laboratory Last Values WBC 4.1 X10^3/uL (4.5-11.0) L 08/16/18 15:49 RBC 4.09 X10^6/uL (4.0-5.2) 08/16/18 15:49 Hgb 13.0 g/dL (12.0-16.0) 08/16/18 15:49 Hct 39.4 % (36-46) 08/16/18 15:49 MCV 96.4 fL (80-100) 08/16/18 15:49 MCH 31.9 PG (26-34) 08/16/18 15:49 MCHC 33.1 % (30-36) 08/16/18 15:49 RDW 17.6 % (11.6-14.8) H 08/16/18 15:49 Plt Count 328 X10^3/uL (150-400) 08/16/18 15:49 Neut % (Auto) 50.5 % (50-75) 08/16/18 15:49 Lymph % (Auto) 34.8 % (25-40) 08/16/18 15:49 [place] % (Auto) 11.6 % (3-14) 08/16/18 15:49 Eos % (Auto) 1.9 % (2-4) L 08/16/18 15:49 Baso % (Auto) 1.2 % (0-2) 08/16/18 15:49 Neut # (Auto) 2100 /uL (6036-5813) 08/16/18 15:49 Lymph # (Auto) 1400 /uL (9067-6247) 08/16/18 15:49 [place] # (Auto) 500 /uL (0-900) 08/16/18 15:49 Eos # (Auto) 100 /uL (0-450) 08/16/18 15:49 Baso # (Auto) 0 /uL (0-100) 08/16/18 15:49 Sodium 140 mmol/L (137-145) 08/16/18 15:49 Potassium 4.5 mmol/L (3.4-5.1) 08/16/18 15:49 Chloride 106 mmol/L (98-107) 08/16/18 15:49 Carbon Dioxide 24 mmol/L (22-32) 08/16/18 15:49 BUN 14 mg/dL (7-17) 08/16/18 15:49 Creatinine 0.70 mg/dL (0.52-1.04) 08/16/18 15:49 Estimated GFR > 60.0 mL/min (>60) 08/16/18 15:49 BUN/Creatinine Ratio 20.0 (6-22) 08/16/18 15:49 Glucose 102 mg/dL (70-100) H 08/16/18 15:49 Calcium 9.9 mg/dL (8.4-10.2) 08/16/18 15:49 Total Bilirubin 0.3 mg/dL (0.2-1.3) 08/16/18 15:49 AST 24 IU/L (14-36) 08/16/18 15:49 ALT 34 IU/L (9-52) 08/16/18 15:49 Alkaline Phosphatase 105 U/L (38-126) 08/16/18 15:49 Total Protein 8.0 g/dL (6.3-8.2) 08/16/18 15:49 Albumin 4.7 g/dL (3.5-5.0) 08/16/18 15:49 Globulin 3.3 g/dL (1.7-4.1) 08/16/18 15:49 Albumin/Globulin Ratio 1.4 (1.0-2.8) 08/16/18 15:49 Assessment and Plan (1) Primary cancer of right breast with metastasis to other site Problem details: Metastatic right breast IDC, mod differentiated, ER positive (3+, 70% of cells), MA positive (2 to 3+, 30% of cells), Ki 67 intermediate (10% of cells) and HER2 negative (0+, 0% of cells). Metastatic sites include multifocal osseous metastatic disease (bone scan and CT scan), axillary lymphadenopathy, pulmonary nodules with lymphangitic carcinomatosis, bilateral pleural effusions, mediastinal lymph nodes. Assessment: She is currently on treatment with goserelin/letrozole/palbociclib/Xgeva. I am planning to repeat CT CAP and bone scan Plan: 1. Continue Goserolin 3.6 mg monthly Most recent injection: 08/16/2018 Next due around 09/16/2018 2. Continue Letrazole 2.5 mg daily 3. Continue Palbciclib 125 mg daily on days 1-21 every 28 days Pt is currently in the 4th week of C2 4. Cont Xgeva 120 mg subQ monthly Next injection due 09/02/2018. 5. Bone scan 6. CT CAP w/contrast 6. RTC in 2-3 weeks CBC, CMP. (2) Pain of multiple sites Problem details: Likely related to extensive bone metastasis. Assessment: The patient has extensive whole body pain affecting the cervical, upper chest, upper back and lower back as well as the lower extremities. Patient said that the pain medication have been working excellent in terms of pain control. Plan: 1. Continue Morphine ER 50 mg x10#, once every 24 hours 3. Continue Hydrocodone 5/325, 1-3# qd prn pain 4. Continue Diclofenac 50 mg, 1-2# daily prn
[2018-08-19 16:20] VITALS: BP 109/72; PULSE 73; RESP 18; TEMP 36.7; O2SAT 95
[2018-09-06 10:09] LABS: Add Manual Diff / Slide Review NO; Basophils Absolute Auto 0 /uL (0-100); Basophils Percent Auto 1.3 % (0-2); Eosinophils Absolute Auto 100 /uL (0-450); Hematocrit 39.2 % (36-46); Hemoglobin 13.1 g/dL (12.0-16.0); Lymphocytes Absolute Auto 1800 /uL (1100-4500); Lymphocytes Percent Auto 49.7 % (25-40); Mean Corpuscular HGB Conc 33.3 % (30-36); Mean Corpuscular Hemoglobin 32.5 PG (26-34); Mean Corpuscular Volume 97.8 fL (80-100); Monocytes Absolute Auto 300 /uL (0-900); Monocytes Percent Auto 8.4 % (3-14); Neutrophils Absolute Auto 1400 /uL (1500-7000); Neutrophils Percent Auto 36.6 % (50-75); Platelet Count 388 X10^3/uL (150-400); Red Blood Cell Count 4.01 X10^6/uL (4.0-5.2); Red Cell Distribution Width 17.8 % (11.6-14.8); White Blood Cell Count 3.7 X10^3/uL (4.5-11.0)
[2018-09-06 10:32] LABS: Alanine Aminotransferase 31 IU/L (9-52); Albumin 4.5 g/dL (3.5-5.0); Albumin Globulin Ratio 1.5 (1.0-2.8); Alkaline Phosphatase 71 U/L (38-126); Aspartate Aminotransferase 24 IU/L (14-36); BUN Creatinine Ratio 18.6 (6-22); Bilirubin Total 0.2 mg/dL (0.2-1.3); Blood Urea Nitrogen 13 mg/dL (7-17); Calcium 9.1 mg/dL (8.4-10.2); Carbon Dioxide 29 mmol/L (22-32); Chloride 101 mmol/L (98-107); Estimated Glomerular Filt Rate > 60.0 mL/min (>60); Globulin 3.1 g/dL (1.7-4.1); Glucose 131 mg/dL (70-100); HEMOLYSIS < 15 (0-50); Potassium 4.1 mmol/L (3.4-5.1); Sodium 139 mmol/L (137-145); Total Protein 7.6 g/dL (6.3-8.2)
--- NOTE | 2018-09-06 13:54 | ONC.NAV ---
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 here with Dr. Ceballos. [employer] called and reserved a room for pt at the [facility], confirmation#: [id number]. Called pt to confirm that this had been done.
--- NOTE | 2018-09-06 16:28 | PC.NURSE ---
labs stable, sees provider on 09/09
--- NOTE | 2018-09-07 15:50 | PC.NURSE ---
Pts SO called to request refills on pts Morphine. I explained to him that we last filled this on 08/20 and she at that time received an emergency refill and that I would not be able to do this again in the same month. I also explained to Atul, that she also need to let us know before she is down to the last pill. Example: Pt was here on Thursday for labs and would have been able to request her medication at that point but failed to do so and is now requesting a one. I told him that Dr Ceballos is not here until and that I would see about getting another provider to issue script but that someone would still need to travel from [place] to [place] the rx.
[2018-09-09 08:48] VITALS: BP 124/75; PULSE 68; RESP 18; TEMP 36.7; O2SAT 98
--- NOTE | 2018-09-09 08:48 | ONC.PN ---
PN -Subjective Interval history: This is a 52-year-old female with ER positive, MS positive, and HER2 negative metastatic right breast cancer with involvement of bilateral lungs, bilateral pleural effusion, mediastinum lymph nodes and widespread osseous metastasis. She was started on goserelin 3.6mg every 28 days on 05/24/2018, and letrozole 2.5 mg daily on 06/01/2018. She started taking palbociclib 125 mg daily on 06/28/2018. She started denosumab 120 mg subQ monthly on 07/05/2018. She is also taking MS Contin 30 mg every 12 hr and hydrocodone 5/325, 1#-3# tablets per day and diclofenac for controlling her back pain. Today, she is here for scheduled follow up. She is accompanied by her boyfriend. She is complaining of lots of pain and is not happy because we did not provide emergency pain med via phone calls. I explained that I usually do not call in narcotics per policy. Otherwise, she is relatively stable. - Patient Self-Reported Symptoms SR Constitution: Chills, Fatigue/Malaise, Night Sweats SR eye issues: Eye pain SR ears, nose, mouth, throat issues: Ears ringing, Congestion, Cough, Difficulty swallowing, Bleeding gums, Changes in taste, Hoarseness SR respiratory issues: Cough, Shortness of breath SR Cardiovascular issues: Chest pain, discomfort, tightness, Shortness of breath with activity or lying flat, Dizzy/lightheaded SR Skin issues: Dry skin, Skin rash or itching, Blistering or peeling, Hair loss or scalp prob, Nail changes SR Gastrointestinal issues: Change in bowel pattern, Constipation, Blood in stool, Abdominal pain SR Genitourinary issues: Frequent urination, Change in stream, Incontinence SR Musculoskeletal issues: Joint pain or swelling, Muscle weakness SR Neuro issues: Headache, Lightheaded/dizzy, Numbness or tingling, Difficulty balancing SR Hematologic issues: Slow healing SR Endocrine issues: Cold intolerance, Heat intolerance - Additional ROS All systems PM: reviewed and no additional remarkable complaints except as stated Home Medications and Allergies Home Medications Medication Instructions Recorded Confirmed Type diclofenac potassium 1 - 2 tab PO DAILY PRN 05/24/18 08/09/18 History goserelin 3.6 mg SUBCUT Q28D #10 ea 05/24/18 08/09/18 Rx palbociclib [Ibrance] 125 mg PO DAILY #21 cap 06/07/18 08/09/18 Rx ondansetron 8 mg PO Q6HR PRN #30 tab 06/15/18 08/09/18 Rx sennosides [senna] 8.6 mg PO BID 06/21/18 08/09/18 History letrozole [Femara] 2.5 mg PO DAILY #90 tab 08/02/18 08/09/18 Rx zolpidem [Ambien] 10 mg PO BEDTIME PRN #7 tab 08/16/18 Rx hydrocodone-acetaminophen 1 tab PO Q4H #18 tab 08/20/18 Rx morphine 30 mg PO Q12H #6 tab 09/07/18 Rx hydrocodone-acetaminophen 1 tab PO Q4H PRN #30 tab 09/09/18 Rx morphine 30 mg PO Q12H #60 tab 09/09/18 Rx Allergies Allergy/AdvReac Type Severity Reaction Status Date / Time clindamycin Allergy Unknown Verified 05/24/18 09:54 levofloxacin [From Levaquin] Allergy Verified 05/24/18 09:53 Penicillins Allergy Verified 05/24/18 09:54 Exam Vital signs: Last Vital Signs Temp 98.0 F 09/09/18 08:48 Pulse 68 09/09/18 08:48 Resp 18 09/09/18 08:48 BP 124/75 09/09/18 08:48 Pulse Ox 98 09/09/18 08:48 ECOG 1 Narrative: Constitutional: well developed, obese, NAD, well groomed, cooperative, anxious HEENT: Normocephalic atraumatic. Extraocular muscle movement intact. Pupils are round, equal and reactive to light and accommodations. Anicteric sclera. No hearing difficulty; Oral mucus membrane moist and without ulcers. Neck: Supple, symmetrical, and tracheal midline; No palpable thyromegaly and no palpable lymph nodes. There is No mass palpable underneath the skin on the back of the neck. Respiratory: No use of accessory muscles. Clear to auscultation, and no wheezes or rales or rubs. Cardiovascular: Regular rate and rhythm, S1 and S2 normal, no murmurs gallops or rubs. No JVD. No pitting edema of lower extremities. Abdomen: Soft, nontender, non-distended, bowel sounds normal, no palpable organomegaly, no hernia, no palpable masses. Lower extremities: No palpable pedal edema. Lymphatic: no palpable lymph nodes in the neck, axillae, or groins. Skin: no rashes, no ulcers, no petechiae Neurological: Awake and alert and oriented x3. CN II-XII grossly intact. No focal motor or sensory deficit. Psychiatric: Good judgment, good insight, normal affect, normal thought process, cooperative, no depression, no anxiety. Breast exams: deferred. Results - Labs Laboratory Last Values WBC 3.7 X10^3/uL (4.5-11.0) L 09/06/18 09:55 RBC 4.01 X10^6/uL (4.0-5.2) 09/06/18 09:55 Hgb 13.1 g/dL (12.0-16.0) 09/06/18 09:55 Hct 39.2 % (36-46) 09/06/18 09:55 MCV 97.8 fL (80-100) 09/06/18 09:55 MCH 32.5 PG (26-34) 09/06/18 09:55 MCHC 33.3 % (30-36) 09/06/18 09:55 RDW 17.8 % (11.6-14.8) H 09/06/18 09:55 Plt Count 388 X10^3/uL (150-400) 09/06/18 09:55 Neut % (Auto) 36.6 % (50-75) L 09/06/18 09:55 Lymph % (Auto) 49.7 % (25-40) H 09/06/18 09:55 [place] % (Auto) 8.4 % (3-14) 09/06/18 09:55 Eos % (Auto) 4.0 % (2-4) 09/06/18 09:55 Baso % (Auto) 1.3 % (0-2) 09/06/18 09:55 Neut # (Auto) 1400 /uL (4521-1642) L 18 09:55 Lymph # (Auto) 1800 /uL (3001-2601) 09/06/18 09:55 [place] # (Auto) 300 /uL (0-900) 09/06/18 09:55 Eos # (Auto) 100 /uL (0-450) 09/06/18 09:55 Baso # (Auto) 0 /uL (0-100) 09/06/18 09:55 Sodium 139 mmol/L (137-145) 09/06/18 09:55 Potassium 4.1 mmol/L (3.4-5.1) 09/06/18 09:55 Chloride 101 mmol/L (98-107) 09/06/18 09:55 Carbon Dioxide 29 mmol/L (22-32) 09/06/18 09:55 BUN 13 mg/dL (7-17) 09/06/18 09:55 Creatinine 0.70 mg/dL (0.52-1.04) 09/06/18 09:55 Estimated GFR > 60.0 mL/min (>60) 09/06/18 09:55 BUN/Creatinine Ratio 18.6 (6-22) 09/06/18 09:55 Glucose 131 mg/dL (70-100) H 09/06/18 09:55 Calcium 9.1 mg/dL (8.4-10.2) 09/06/18 09:55 Total Bilirubin 0.2 mg/dL (0.2-1.3) 09/06/18 09:55 AST 24 IU/L (14-36) 09/06/18 09:55 ALT 31 IU/L (9-52) 09/06/18 09:55 Alkaline Phosphatase 71 U/L (38-126) 09/06/18 09:55 Total Protein 7.6 g/dL (6.3-8.2) 09/06/18 09:55 Albumin 4.5 g/dL (3.5-5.0) 09/06/18 09:55 Globulin 3.1 g/dL (1.7-4.1) 09/06/18 09:55 Albumin/Globulin Ratio 1.5 (1.0-2.8) 09/06/18 09:55 Assessment and Plan (1) Primary cancer of right breast with metastasis to other site Problem details: Metastatic right breast IDC, mod differentiated, ER positive (3+, 70% of cells), MS positive (2 to 3+, 30% of cells), Ki 67 intermediate (10% of cells) and HER2 negative (0+, 0% of cells). Metastatic sites include multifocal osseous metastatic disease (bone scan and CT scan), axillary lymphadenopathy, pulmonary nodules with lymphangitic carcinomatosis, bilateral pleural effusions, mediastinal lymph nodes. Assessment: She is currently on treatment with goserelin/letrozole/palbociclib/Xgeva. I reviewed the bone scan results with the patient. The bone scan showed extensive osseus metastatic disease which seems to be increased compared to previous visit. But the CT scan of the chest abdomen and pelvis showed increased sclerosis throughout the innumerable lytic lesions when compared to the previous study dated 05/20/2018 suggesting treatment response. No findings to suggest new metastasis. I explained to the patient that in my opinion, patient has responded to the treatment. And I will continue the treatment with regular scan follow-up. Patient voiced understanding. Plan: 1. Continue Goserolin 3.6 mg monthly Due around 09/13/2018 Next dose 10/11/2018 2. Continue Letrazole 2.5 mg daily 3. Continue Palbciclib 125 mg daily on days 1-21 every 28 days Pt is currently in the 4th week of C2 4. Cont Xgeva 120 mg subQ monthly Next dose 10/07/2018 5. RTC in 1-2 weeks CBC, CMP. (2) Pain of multiple sites Problem details: Likely related to extensive bone metastasis. Assessment: The patient has extensive whole body pain affecting the cervical, upper chest, upper back and lower back as well as the lower extremities. Patient said that the pain medication have been working excellent in terms of pain control. Plan: 1. Continue Morphine ER 30 mg, q12h, 60# written today 3. Continue Hydrocodone 5/325, 1-3# qd prn pain, 30# written 4. Continue Diclofenac 50 mg, 1-2# daily prn
--- NOTE | 2018-09-09 09:12 | ONC.NAV ---
Description: Pain Management Coordination/Agreement Activity: PUBLISHING EDITOR met with pt prior to her provider appt. with Dr. Ceballos to discuss our team/clinic decision to enforce the protocol of no longer providing pt emergency fills of her narcotic medications. Pt has been stating that she keeps forgetting to ask for refills on her pain meds when she is here in the clinic, and then has repeatedly called the triage nurse here wanting just 3 pills, then just 6 pills on another day, etc. Pt and her boyfriend have refused several times now to drive to the clinic to pick-up the narcotic prescriptions when told by triage that it was ready and available. Pt has then called repeatedly to her PCP, her pharmacy, as well as multiple people here in the clinic demanding more pain medication, stating that it's not her responsibility to keep track of her meds, and that it's your job as a clinic to make sure I have all the medications I need. PUBLISHING EDITOR provided pt a copy of the signed contract that she made with her PCP, per Dr. Ceballos's request, at the beginning of her treatment which clearly states that she will only be prescribed pain medication through Dr. Ceballos, unless there is an emergent need, which there has not been. She continues to ask us to call her PCP and ask her to provide pain medication to pt. Dr. Ceballos requested that this PUBLISHING EDITOR locate an [facility] controlled substance treatment agreement for pt to sign during her visit with him today, which PUBLISHING EDITOR was able to find and provided it to him for her appt. He will have a directive conversation with her regarding what he will prescribe, under what circumstances, and with clear boundaries during her appt. today.
--- NOTE | 2018-09-09 09:18 | PC.NURSE ---
Late entry for 09/08/18 at 1300: called pt at request of Vi SHANAE regarding pain medication refill needed. Pt was here in clinic on Thursday for lab work and did not ask for a refill of her MS ER tablets at that time. She later called back to state that she forgot to ask for a refill on her Morphine when she was here on Wednesday 09/06. She asked if she could have a refill of tablets to get her to her appt with Dr Ceballos on 09/09. After much back and forth, Mari had a script generated by [facility] for 6 tablets of Morphine ER to get pt to appt. Pt was notified that script was available for pharmacy picking technician. On Friday 09/08 pt called to express that she is unable to get here to pharmacy picking technician her hard copy script and is requesting the tablets be called into [facility] in [place]. Per her report, they stated they would do an emergency fill of 3 tablets to get her doses until she's here on . Informed the patient that is not standard of practice and although we did that last time, we instructed her at that time that that would not be happening again. She states the pharmacy led her to believe that it's no problem. Informed her that we do not feel comfortable continuing to make allowances on an emergency basis. Pt states she has an appt with her PCP at 1415. Instructed pt to ask for her PCP to give her a script for 3 tablets. She states that Dr Ceballos had her sign a pain contract that states she would only get her pain meds from us. I placed a call to her PCP and spoke with nurse and explained the situation. Requested Dr Ramos do a courtesy script for 3 tablets to get her to her appt with Dr Ceballos on 09/09. Nurse said she'd look into it and let Dr Ramos know. At the time, I was unaware that the pain contract existed with her PCP and not us. Informed the pt that she needs to request refill when she's here or she'd have to drive here from [place] to pharmacy picking technician the script.
[2018-09-09 10:35] LABS: Alanine Aminotransferase 33 IU/L (9-52); Albumin 4.3 g/dL (3.5-5.0); Albumin Globulin Ratio 1.4 (1.0-2.8); Alkaline Phosphatase 65 U/L (38-126); Aspartate Aminotransferase 21 IU/L (14-36); BUN Creatinine Ratio 11.4 (6-22); Bilirubin Total 0.2 mg/dL (0.2-1.3); Blood Urea Nitrogen 8 mg/dL (7-17); Calcium 9.1 mg/dL (8.4-10.2); Carbon Dioxide 27 mmol/L (22-32); Chloride 103 mmol/L (98-107); Estimated Glomerular Filt Rate > 60.0 mL/min (>60); Glucose 104 mg/dL (70-100); HEMOLYSIS < 15 (0-50); Potassium 4.5 mmol/L (3.4-5.1); Sodium 139 mmol/L (137-145); Total Protein 7.3 g/dL (6.3-8.2)
[2018-09-09] MEDS: DENOSUMAB 120 MG/1.7 ML VIAL SUBCUT (10:49)
[2018-09-16 10:14] VITALS: BP 121/63; PULSE 92; RESP 16; TEMP 36.6; O2SAT 98
--- NOTE | 2018-09-16 10:24 | P.PNONC_ITS ---
PN -Subjective Interval history: This is a 52-year-old female with ER positive, OH positive, and HER2 negative metastatic right breast cancer with involvement of bilateral lungs, bilateral pleural effusion, mediastinum lymph nodes and widespread osseous metastasis. She was started on goserelin 3.6 mg every 28 days on 05/24/2018, and letrozole 2.5 mg daily on 06/01/2018. She started taking palbociclib 125 mg daily on 06/28/2018. She started denosumab 120 mg subQ monthly on 07/05/2018. She is also taking MS Contin 30 mg every 12 hr and hydrocodone 5/325, 1#-3# tablets per day and diclofenac for controlling her back pain. Today, she said that she feels that he tumor is shrinking when she is in bed. Her spine is moving better, but with more pain. She is complaining pain all over her body and all her joints, including head, shoulder, hips, spines, and neck. Sometimes it is a sharp pain on the left knee. She said she has not been able to walk as much, and less mobile 2/2 more pain. She complains of getting weaker. She is taking MS ER 30 mg q12h, - Patient Self-Reported Symptoms SR Constitution: Chills, Fatigue/Malaise, Night Sweats SR eye issues: Eye pain SR ears, nose, mouth, throat issues: Ears ringing, Congestion, Cough, Difficulty swallowing, Bleeding gums, Changes in taste, Hoarseness SR respiratory issues: Cough, Shortness of breath SR Cardiovascular issues: Chest pain, discomfort, tightness, Shortness of breath with activity or lying flat, Dizzy/lightheaded SR Skin issues: Dry skin, Skin rash or itching, Blistering or peeling, Hair loss or scalp prob, Nail changes SR Gastrointestinal issues: Change in bowel pattern, Constipation, Blood in stool, Abdominal pain SR Genitourinary issues: Frequent urination, Change in stream, Incontinence SR Musculoskeletal issues: Joint pain or swelling, Muscle weakness SR Neuro issues: Headache, Lightheaded/dizzy, Numbness or tingling, Difficulty balancing SR Hematologic issues: Slow healing SR Endocrine issues: Cold intolerance, Heat intolerance - Additional ROS All systems PM: reviewed and no additional remarkable complaints except as stated Home Medications and Allergies Home Medications Medication Instructions Recorded Confirmed Type diclofenac potassium 1 - 2 tab PO DAILY PRN 05/24/18 08/09/18 History goserelin 3.6 mg SUBCUT Q28D #10 ea 05/24/18 08/09/18 Rx palbociclib [Ibrance] 125 mg PO DAILY #21 cap 06/07/18 08/09/18 Rx ondansetron 8 mg PO Q6HR PRN #30 tab 06/15/18 08/09/18 Rx sennosides [senna] 8.6 mg PO BID 06/21/18 08/09/18 History letrozole [Femara] 2.5 mg PO DAILY #90 tab 08/02/18 08/09/18 Rx zolpidem [Ambien] 10 mg PO BEDTIME PRN #7 tab 08/16/18 Rx hydrocodone-acetaminophen 1 tab PO Q4H #18 tab 08/20/18 Rx morphine 30 mg PO Q12H #6 tab 09/07/18 Rx hydrocodone-acetaminophen 1 tab PO Q4H PRN #30 tab 09/09/18 Rx morphine 30 mg PO Q12H #60 tab 09/09/18 Rx Allergies Allergy/AdvReac Type Severity Reaction Status Date / Time clindamycin Allergy Unknown Verified 05/24/18 09:54 levofloxacin [From Levaquin] Allergy Verified 05/24/18 09:53 Penicillins Allergy Verified 05/24/18 09:54 Exam Vital signs: Last Vital Signs Temp 97.9 F 09/16/18 10:14 Pulse 92 H 09/16/18 10:14 Resp 16 09/16/18 10:14 BP 121/63 09/16/18 10:14 Pulse Ox 98 09/16/18 10:14 ECOG 1 Narrative: Constitutional: well developed, obese, NAD, well groomed, cooperative, anxious HEENT: Normocephalic atraumatic. Extraocular muscle movement intact. Pupils are round, equal and reactive to light and accommodations. Anicteric sclera. No hearing difficulty; Oral mucus membrane moist and without ulcers. Neck: Supple, symmetrical, and tracheal midline; No palpable thyromegaly and no palpable lymph nodes. There is No mass palpable underneath the skin on the back of the neck. Respiratory: No use of accessory muscles. Clear to auscultation, and no wheezes or rales or rubs. Cardiovascular: Regular rate and rhythm, S1 and S2 normal, no murmurs gallops or rubs. No JVD. No pitting edema of lower extremities. Abdomen: Soft, nontender, non-distended, bowel sounds normal, no palpable organomegaly, no hernia, no palpable masses. Lower extremities: No palpable pedal edema. Lymphatic: no palpable lymph nodes in the neck, axillae, or groins. Skin: no rashes, no ulcers, no petechiae Neurological: Awake and alert and oriented x3. CN II-XII grossly intact. No focal motor or sensory deficit. Psychiatric: Good judgment, good insight, normal affect, normal thought process, cooperative, no depression, no anxiety. Breast exams: deferred. Results - Labs Laboratory Last Values WBC 3.7 X10^3/uL (4.5-11.0) L 09/06/18 09:55 RBC 4.01 X10^6/uL (4.0-5.2) 09/06/18 09:55 Hgb 13.1 g/dL (12.0-16.0) 09/06/18 09:55 Hct 39.2 % (36-46) 09/06/18 09:55 MCV 97.8 fL (80-100) 09/06/18 09:55 MCH 32.5 PG (26-34) 09/06/18 09:55 MCHC 33.3 % (30-36) 09/06/18 09:55 RDW 17.8 % (11.6-14.8) H 09/06/18 09:55 Plt Count 388 X10^3/uL (150-400) 09/06/18 09:55 Neut % (Auto) 36.6 % (50-75) L 09/06/18 09:55 Lymph % (Auto) 49.7 % (25-40) H 09/06/18 09:55 Love % (Auto) 8.4 % (3-14) 09/06/18 09:55 Eos % (Auto) 4.0 % (2-4) 09/06/18 09:55 Baso % (Auto) 1.3 % (0-2) 09/06/18 09:55 Neut # (Auto) 1400 /uL (2686-7591) L 09/06/18 09:55 Lymph # (Auto) 1800 /uL (0095-7145) 09/06/18 09:55 Love # (Auto) 300 /uL (0-900) 09/06/18 09:55 Eos # (Auto) 100 /uL (0-450) 09/06/18 09:55 Baso # (Auto) 0 /uL (0-100) 09/06/18 09:55 Sodium 139 mmol/L (137-145) 09/09/18 09:59 Potassium 4.5 mmol/L (3.4-5.1) 09/09/18 09:59 Chloride 103 mmol/L (98-107) 09/09/18 09:59 Carbon Dioxide 27 mmol/L (22-32) 09/09/18 09:59 BUN 8 mg/dL (7-17) 09/09/18 09:59 Creatinine 0.70 mg/dL (0.52-1.04) 09/09/18 09:59 Estimated GFR > 60.0 mL/min (>60) 09/09/18 09:59 BUN/Creatinine Ratio 11.4 (6-22) 09/09/18 09:59 Glucose 104 mg/dL (70-100) H 09/09/18 09:59 Calcium 9.1 mg/dL (8.4-10.2) 09/09/18 09:59 Total Bilirubin 0.2 mg/dL (0.2-1.3) 09/09/18 09:59 AST 21 IU/L (14-36) 09/09/18 09:59 ALT 33 IU/L (9-52) 09/09/18 09:59 Alkaline Phosphatase 65 U/L (38-126) 09/09/18 09:59 Total Protein 7.3 g/dL (6.3-8.2) 09/09/18 09:59 Albumin 4.3 g/dL (3.5-5.0) 09/09/18 09:59 Globulin 3.0 g/dL (1.7-4.1) 09/09/18 09:59 Albumin/Globulin Ratio 1.4 (1.0-2.8) 09/09/18 09:59 Assessment and Plan (1) Primary cancer of right breast with metastasis to other site Problem details: Metastatic right breast IDC, mod differentiated, ER positive (3+, 70% of cells), OH positive (2 to 3+, 30% of cells), Ki 67 intermediate (10% of cells) and HER2 negative (0+, 0% of cells). Metastatic sites include multifocal osseous metastatic disease (bone scan and CT scan), axillary lymphadenopathy, pulmonary nodules with lymphangitic carcinomatosis, bilateral pleural effusions, mediastinal lymph nodes. Assessment: She is currently on goserelin 3.6 mg every 28 days (starte on 05/24/2018), letrozole 2.5 mg daily (started on 06/01/2018), palbociclib 125 mg daily 3 week on and 1 week off ( started on 06/28/2018), and denosumab 120 mg subQ monthly (started on 07/05/2018). Bone scan and CT scan of the chest abdomen and pelvis performed on 08/31/2018 showed disease stability and no progression. I explained to the patient that I think she is responding to the current therapy. However patient has a lot of complaints and symptoms. She said she did not feel comfortable getting the injection here at the [facility]. She said it is not the pain with injection when asked. In addition she is complaining that her phone calls were not handled appropriately and her message was not replied quickly. I talked with the patient that I would recommend that we transfer her care to [facility]. As a matter of fact, it is 30 min closer. She lives in [place], [place]. Patient and patient's boyfriend both voiced agreement. I will try to see her at the [facility] within the next 2 weeks. Plan: 1. Ok to proceed to Goserelin 3.6 mg today. 2. Continue palbociclib as instructed 3. Continue Legrazole as instructed 4. Refer patient to [facility] for continued care. (2) Pain of multiple sites Problem details: Likely related to extensive bone metastasis. Assessment: The patient has extensive whole body pain affecting the cervical, upper chest, upper back and lower back as well as the lower extremities. Patient said that the pain medication have been working excellent in terms of pain control. Plan: 1. Continue Morphine ER 30 mg, q12h 3. Continue Hydrocodone 5/325, 1-3# qd prn pain 4. Continue Diclofenac 50 mg, 1-2# daily prn
[2018-09-16] MEDS: GOSERELIN 3.6 MG SUBCUT (11:57)
== END ==
PROVIDERS: Nurse Practitioner Gerontology; PCP Family Medicine; Visit Provider Internal Medicine Hematology & Oncology
DX: C50.911 Malignant neoplasm of unspecified site of right female breast (principal); C78.01 Secondary malignant neoplasm of right lung; C78.02 Secondary malignant neoplasm of left lung; C79.51 Secondary malignant neoplasm of bone; C77.1 Secondary and unspecified malignant neoplasm of intrathoracic lymph nodes; R52 Pain, unspecified; Z17.0 Estrogen receptor positive status [ER+]; Z79.811 Long term (current) use of aromatase inhibitors
CPT/HCPCS: 36415; 70553; 80053; 85025; 96372; 96401; 96402; 99205; 99214; 99215; A9579; J0897; J9202